=== PATIENT | female | born 1960 | race Caucasian/White ===

== ENCOUNTER 2022-08-09 09:57 | Outpatient (CLI) | payer BC, SELFPAY | END 2022-08-09 09:58 | disposition home or self-care (01) | PROVIDERS: PCP Family Medicine; Visit Provider Family Medicine | DX: E53.8 Deficiency of other specified B group vitamins (principal); E66.01 Morbid (severe) obesity due to excess calories; Z13.1 Encounter for screening for diabetes mellitus; Z13.6 Encounter for screening for cardiovascular disorders | CPT/HCPCS: 80053; 80061; 82306; 82607 ==

== ENCOUNTER 2022-09-08 09:02 | Emergency (ER) | payer BC, SELFPAY ==
[2022-09-08 09:08] VITALS: BP 142/98; PULSE 57; RESP 16; TEMP 36.8; O2SAT 99; BMI 23.2
--- NOTE | 2022-09-08 09:21 | ED_ITS ---
HPI - General Adult General Chief complaint: Weakness Stated complaint: dizzy after MX surgery Time Seen by Provider: 09/08/22 09:07 History of Present Illness HPI narrative: Patient is a 61 year white female who was in [place] had a strangulated hernia repair in her right groin lower abdomen. She had this done emergently. This about 10 days ago. She has had some bleeding now. She has felt a little dizzy. She reports that the surgery went well. She has had pretty good postop rec overy. She is on immune modulators for her rheumatoid arthritis, and Percocet. She denies being on any blood thinners. She has had take has taken Tylenol. No chest pain, breathing problem, neurologic complaint. Related Data Home Medications Medication Instructions Recorded Confirmed adalimumab 40 mg/0.8 mL kit subcut 01/18/22 08/09/22 subcutaneous pen kit (Humira Pen) methotrexate sodium 2.5 mg tablet 2.5 mg PO 01/18/22 08/09/22 oxycodone-acetaminophen 5 mg-325 1 tab PO 01/18/22 08/09/22 mg tablet salsalate 500 mg tablet 1,000 mg PO 01/18/22 08/09/22 Previous Rx's Medication Instructions Recorded oxycodone-acetaminophen 5 mg-325 1 tab PO Q8H PRN pain #10 tabs 09/08/22 mg tablet (Percocet) Allergies Allergy/AdvReac Type Severity Reaction Status Date / Time No Known Drug Allergies Allergy Verified 09/08/22 09:13 Review of Systems Status of ROS: Reports: 6 or more systems reviewed and unremarkable except as noted in History and below PFSH PFSH Social History Smoking Status: Never smoker Little interest or pleasure in doing things: several days Feeling down, depressed, or hopeless: several days Exam Narrative: Exam Narrative: Objective: In general patient apparent distress Vital signs look largely unremarkable Abdomen is benign soft She has a postop hematoma that is draining slightly some darkish blood when pressed, it seems to have a little bit of a hematoma along entire suture line., there is some some mild violaceous color. She has no peritoneal signs under abdomen Good peripheral perfusion noted Neurologic nonfocal Const: Vital Signs, click to edit/add: Vital Signs - 24 hr 09/08/22 09:08 Temperature 98.3 F Pulse Rate [Right Pulse Oximeter] 57 L Respiratory Rate 16 Blood Pressure [Ri ght Upper Arm] 142/98 H Pulse Oximetry 99 Oxygen Delivery Me thod Room Air Course Vital Signs Vital signs: Initial Vital Signs Temperature 98.3 F 09/08/22 09:08 Temperature Source Temporal Artery Scan 09/08/22 09:08 Pulse Rate 57 L 09/08/22 09:08 Pulse Rhythm Regular 09/08/22 09:08 Pulse Strength 3+ Normal 09/08/22 09:08 Respiratory Rate 16 09/08/22 09:08 Blood Pressure 142/98 H 09/08/22 09:08 Blood Pressure Mean 112 H 09/08/22 09:08 Blood Pressure Position Supine 09/08/22 09:08 Pulse Oximetry 99 09/08/22 09:08 Oxygen Delivery Method Room Air 09/08/22 09:08 Vital Signs Temperature 98.3 F 09/08/22 09:08 Pulse Rate 57 L 09/08/22 09:08 Respiratory Rate 16 09/08/22 09:08 Blood Pressure 142/98 H 09/08/22 09:08 Pulse Oximetry 99 09/08/22 09:08 Oxygen Delivery Method Room Air 09/08/22 09:08 Temperature 98.3 F 09/08/22 09:08 Pulse Rate 57 L 09/08/22 09:08 Respiratory Rate 16 09/08/22 09:08 Blood Pressure 142/98 H 09/08/22 09:08 Pulse Oximetry 99 09/08/22 09:08 Oxygen Delivery Method Room Air 09/08/22 09:08 Medical Decision Making MDM Narrative Medical decision making narrative: Patient is 10 days status post lower abdominal hernia repair, with postop hematoma and some leakage of blood out of the wound. At this point would recommend surgical consultation, will check electrolytes and labs, IV fluid. Disposition pending surgical consultation. An ABD pad was placed on the wound. Lab Data Labs: Lab Results 09/08/22 Range/Units 09:30 WBC 5.07 (4.50-11.00) K/uL RBC 3.35 L (4.00-5.20) m/uL Hgb 10.7 L (12.0-16.0) gm/dL Hct 33.3 (33.0-51.0) % MCV 99 (80-100) fL MCH 32 (26-34) pg MCHC 32 (32-36) gm/dL RDW Coeff of Vianca 13.9 (11.5-15.5) % Plt Count 405 (140-440) K/uL Neut % (Auto) 45.5 (42.0-72.0) % Lymph % (Auto) 35.5 (20-44) % Petroleum % (Auto) 7.5 (0.0-11.0) % Eos % (Auto) 10.3 H (0.0-7.0) % Baso % (Auto) 1.0 (0.0-3.0) % Neut # (Auto) 2.31 (1.7-7.0) K/uL Lymph # (Auto) 1.80 (0.90-2.90) K/uL Petroleum # (Auto) 0.40 (0.00-0.90) K/UL Eos # (Auto) 0.50 (0.00-0.50) K/uL Baso # (Auto) 0.05 (0.00-0.30) K/uL Sodium 137 (135-149) mmol/L Potassium 3.9 (3.6-5.1) mmol/L Chloride 105 (96-114) mmol/L Carbon Dioxide 30 (20-32) mmol/L BUN 7 (7-30) mg/dL Creatinine 0.6 (0.5-1.5) mg/dL Estimated Creat Clear 109.17 Estimated GFR 103 ml/min Glucose 92 (60-115) mg/dL Calcium 8.4 (8.4-10.6) mg/dL Discharge Plan Discharge Clinical Impression: Postoperative hematoma Patient Disposition: Home w/ Parent or Adult Condition: Stable Additional Instructions: Postop wound care per surgeon, fluids, Tylenol as needed, recheck with surgeon as described. No bending or lifting heavy objects, avoid aspirin. Please have follow-up as per Dr. Ho's recommendation Activity Level: Light activity Discharge Diet: Regular Prescriptions: New oxycodone-acetaminophen [Percocet] 5-325 mg tablet 1 tab PO Q8H PRN (Reason: pain) Qty: 10 0RF No Action salsalate 500 mg tablet 1,000 mg PO Patient Comments: TAKE 1 TABLET BY MOUTH TWICE DAILY methotrexate sodium 2.5 mg tablet 2.5 mg PO Patient Comments: TAKE 8 TABLETS BY MOUTH ONCE WEEKLY oxycodone-acetaminophen 5-325 mg tablet 1 tab PO Patient Comments: TAKE ONE TABLET BY MOUTH EVERY SIX HOURS NEEDED Humira Pen 40 mg/0.8 mL pen injector kit subcut Follow Up/Referrals: Katiana Riley DO [Primary Care Provider] - Stand Alone Forms: [facility] Info Instructions
--- OUTSIDE RECORDS SUMMARY | 2022-09-08 09:37 | XMS_ITS | Continuity of Care Document ---
Author Name Unknown Organization [facility] giselle Address [address] [facility] [place] [address] Phone Care Team Providers Care Worm Raiser Name Role Phone Bernard Bonner Unavailable Unavailable Allergies, Adverse Reactions, Alerts Substance Reaction Status Criticality No Known Allergies Active No Inform ation Medications Medication Instructions Dosage Effective Dates (start - stop) Status Comments aspirin 325 mg tablet take 1 tablet by oral route every day as needed 325 MG - Active Trexall 5 mg tablet take 8 tablet by oral route every week 40 MG - Active Humira 20 mg/0.4 mL subcutaneous syringe kit use subcutaneously as directed - Active omeprazole 20 mg capsule,delayed release take 1 capsule by oral route every day before a meal 20 MG - Active salsalate 500 mg tablet take 1 tablet by oral route 2 times every day 500 MG - Active Percocet 5 mg-325 mg tablet take 1 tablet by ORAL route every 4 - 6 hours as needed; max 3.5/day - No Longer Active May fill today Percocet 5 mg-325 mg tablet take 1 tablet by ORAL route every 4 - 6 hours as needed; max 3.5/day - No Longer Active May fill today Procedures Procedure Date Foll-up eval q3mo opiod tx OFFICE VISIT, EST TELEMEDICINE Drug Urine Toxology With Chromatography Drug test def 8-14 classes Foll-up eval q3mo opiod tx PT-FOCUSED HLTH RISK ASSMT OFFICE/OUTPATIENT VISIT, EST Foll-up eval q3mo opiod tx OFFICE VISIT, EST TELEMEDICINE Foll-up eval q3mo opiod tx OFFICE VISIT, EST TELEMEDICINE Foll-up eval q3mo opiod tx OFFICE VISIT, EST TELEMEDICINE Foll-up eval q3mo opiod tx OFFICE VISIT, EST TELEMEDICINE Foll-up eval q3mo opiod tx OFFICE VISIT, EST TELEMEDICINE Foll-up eval q3mo opiod tx OFFICE VISIT, EST TELEMEDICINE ROUTINE BLOOD DRAW Drug Urine Toxology With Chromatography Drug test def 8-14 classes Foll-up eval q3mo opiod tx OFFICE VISIT, EST TELEMEDICINE Foll-up eval q3mo opiod tx OFFICE VISIT, EST TELEMEDICINE Foll-up eval q3mo opiod tx OFFICE VISIT, EST TELEMEDICINE OFFICE/OUTPATIENT VISIT, EST Foll-up eval q3mo opiod tx OFFICE VISIT, EST TELEMEDICINE OFFICE VISIT, EST TELEMEDICINE Foll-up eval q3mo opiod tx Foll-up eval q3mo opiod tx OFFICE VISIT, EST TELEMEDICINE OFFICE VISIT, EST TELEMEDICINE Foll-up eval q3mo opiod tx OFFICE VISIT, EST TELEMEDICINE Foll-up eval q3mo opiod tx OFFICE VISIT, EST TELEMEDICINE Foll-up eval q3mo opiod tx Foll-up eval q3mo opiod tx OFFICE VISIT, EST TELEMEDICINE 21 OFFICE VISIT, EST TELEMEDICINE Herrera-28-20 21 Foll-up eval q3mo opiod tx OFFICE VISIT, EST TELEMEDICINE 20 Foll-up eval q3mo opiod tx OFFICE VISIT, EST TELEMEDICINE 20 Foll-up eval q3mo opiod tx OFFICE VISIT, EST TELEMEDICINE 20 Foll-up eval q3mo opiod tx Foll-up eval q3mo opiod tx OFFICE VISIT, EST TELEMEDICINE 20 OFFICE VISIT, EST TELEMEDICINE 20 Foll-up eval q3mo opiod tx OFFICE VISIT, EST TELEMEDICINE 20 Foll-up eval q3mo opiod tx Foll-up eval q3mo opiod tx OFFICE VISIT, EST TELEMEDICINE 20 Foll-up eval q3mo opiod tx OFFICE VISIT, EST TELEMEDICINE 20 Foll-up eval q3mo opiod tx OFFICE VISIT, EST TELEMEDICINE 20 Foll-up eval q3mo opiod tx OFFICE VISIT, EST TELEMEDICINE 20 Drug Urine Toxology With Chromatography Foll-up eval q3mo opiod tx OFFICE/OUTPATIENT VISIT, EST Foll-up eval q3mo opiod tx OFFICE/OUTPATIENT VISIT, EST Foll-up eval q3mo opiod tx OFFICE/OUTPATIENT VISIT, EST OFFICE/OUTPATIENT VISIT, EST Foll-up eval q3mo opiod tx Foll-up eval q3mo opiod tx OFFICE/OUTPATIENT VISIT, EST OFFICE/OUTPATIENT VISIT, EST OFFICE/OUTPATIENT VISIT, EST OFFICE/OUTPATIENT VISIT, EST OFFICE/OUTPATIENT VISIT, EST OFFICE/OUTPATIENT VISIT, EST OFFICE/OUTPATIENT VISIT, EST OFFICE/OUTPATIENT VISIT, EST OFFICE/OUTPATIENT VISIT, EST OFFICE/OUTPATIENT VISIT, [facility] Drug test def 22+ classes Drug Urine Toxology With Chromatography OFFICE CONSULTATION Advance Directives Directive Yes / No Effective Date File Name No Information Encounters Encounter Description Practice Location Reason(s) For Visit Diagnoses Date Provider Providers Copied on Encounter OFFICE VISIT, [facility] TELEMEDICINE [facility], [address] [place] [address], [id number] , [place] tel: [phone] [facility] Rheumatoid Arthritis (chief complaint) Rheumatoid arthritis, unspecifiedPain in left handLong term (current) use of opiate analgesic 2 Joselyn Wagner. [address] [place] [address] [address], [place], [place], [id number] , [place]. tel:[phone] Referring Provider: Yan Brooks, [address] [place] [address], [address]. [phone] [facility], [address] [place] [address], [id number] , [place] tel: [phone] [facility] No Information 2 Joselyn Wagner. [address] [place] [address] [address], [place], [place], [id number] , [place]. tel:[phone] OFFICE/OUTPAT IENT VISIT, [facility], [address] [place] [address], [id number] , [place] tel: [phone] [facility] Rheumatoid Arthritis (chief complaint) Rheumatoid arthritis, unspecifiedPain in left handLong term (current) use of opiate analgesicEncount er for screening for other disorder 2 Joselyn Wagner. [address] [place] [address] [address], [place], [place], [id number] , [place]. tel:[phone] Referring Provider: Jonathan Lozada, [address], [address]. tel:[phone] OFFICE VISIT, [facility] TELEMEDICINE [facility], [address] [place] [address], [id number] , [place] tel: [phone] [facility] [place] Rheumatoid Arthritis (chief complaint) Rheumatoid arthritis, unspecifiedPain in left handLong term (current) use of opiate analgesic 2 Alves Bernard. [address] [place] [address] [address], [place], [id number] , [place]. tel: [phone] OFFICE VISIT, EST TELEMEDICINE [facility], [address] [place] [address], [id number] , [place] tel: [phone] [facility] Rheumatoid Arthritis (chief complaint) Rheumatoid arthritis, unspecifiedPain in left handLong term (current) use of opiate analgesic 2 Alves Bernard. [address] [place] [address] [address], [place], [place], [id number] , [place]. tel: [phone] Referring Provider: Yan Brooks, [address] [place] [address], [address]. tel:[phone] OFFICE VISIT, [facility] TELEMEDICINE [facility], [address] [place] [address], [id number] , [place] tel: [phone] [facility] Rheumatoid Arthritis (chief complaint) Rheumatoid arthritis, unspecifiedPain in right handPain in left handLong term (current) use of opiate analgesic 2 Alves Bernard. [address] [place] [address] [address], [place], [place], [id number] , [place]. tel: [phone] Referring Provider: Yan Brooks, [address] [place] [address], [address]. tel:[phone] OFFICE VISIT, EST TELEMEDICINE [facility], [address] [place] [id number] , [place] tel: [phone] [facility] Rheumatoid Arthritis (chief complaint) Rheumatoid arthritis, unspecifiedPain in left handPain in right handLong term (current) use of opiate analgesic 2 Alves Bernard. [address] [place] [address] [address], [place], [place], [id number] , [place]. tel:[phone] Referring Provider: Yan Brooks, [address] [place], [address]. [phone] OFFICE VISIT, EST TELEMEDICINE [facility], [address] [place] [address], [id number] , [place] tel:[phone] [facility] [place] Rheumatoid Arthritis (chief complaint) Rheumatoid arthritis, unspecifiedPain in left handPain in right handLong term (current) use of opiate analgesic 2 Joselyn Wagner. [facility], [facility] [address], [place], [place], [id number] , [place]. tel: [phone] OFFICE VISIT, EST TELEMEDICINE [facility], [address] [place] [address], [id number] , [place] tel:[phone] [facility] Rheumatoid Arthritis (chief complaint) Rheumatoid arthritis, unspecifiedPain in left handPain in right handLong term (current) use of opiate analgesic 1 Joselyn Wagner. [address] [place] [address] [address], [place], [place], [id number] , [place]. tel:[phone] [facility], [address] [place] [address], [id number] , [place] tel:[phone] [facility] [place] No Information 1 Karon Cohn. [address], [place], [place], [id number] , [place]. tel: [phone] Referring Provider: Jonathan Lozada, [facility] [address], [address]. [phone] OFFICE VISIT, EST TELEMEDICINE [facility], [address] [place] [address], [id number] , [place] tel:[phone] [facility] [place] Rheumatoid Arthritis (chief complaint) Rheumatoid arthritis, unspecifiedPain in left handPain in right handLong term (current) use of opiate analgesic 1 Joselyn Wagner. [address] [place] [address] [address], [place], [id number] , [place]. tel: [phone] OFFICE VISIT, EST TELEMEDICINE [facility], [address] [place] [address], [id number] , [place] tel: [phone] [facility] Rheumatoid Arthritis (chief complaint) Rheumatoid arthritis, unspecifiedPain in left handPain in right handLong term (current) use of opiate analgesic Feb- 1 Alves Bernard. [facility], [facility] [address], [place], [id number] , [place]. tel: [phone] Referring Provider: Yan Brooks, [address] [place] [address], [address]. [phone] OFFICE VISIT, EST [facility], [address] [place] [address], [id number] , [place] tel: [phone] [facility] Rheumatoid Arthritis (chief complaint) Pain in left handPain in right handRheumatoid arthritis, unspecifiedLong term (current) use of opiate analgesic Jan- 1 Alves Bernard. [facility], [facility] [address], [place], [id number] , [place]. tel: [phone] OFFICE VISIT, EST TELEMEDICINE [facility], [address] [place] [address], [id number] , [place] tel: [phone] [facility] Rheumatoid Arthritis (chief complaint) Pain in left handPain in right handLong term (current) use of opiate analgesicRheumat oid arthritis, unspecified Aug- 1 Alves Bernard. [address] [place] [address] [address], [place], [id number] , [place]. tel:[phone] Referring Provider: Yan Brooks, [address] [place] [address], [address]. [phone] OFFICE VISIT, EST TELEMEDICINE [facility], [address] [place] [address], [id number] , [place] tel:[phone] [facility] Rheumatoid Arthritis (chief complaint) Pain in left handPain in right handLong term (current) use of opiate analgesicRheumat oid arthritis, unspecified 1 Joselyn Wagner. [address] [place] [address] [address], [place], [place], [id number] , [place]. tel:[phone] Referring Provider: Yan Brooks, [address] [place] [address], [address]. tel:[phone] OFFICE VISIT, EST TELEMEDICINE [facility], [address] [place] [address], [id number] , [place] tel:[phone] [facility] Rheumatoid Arthritis (chief complaint) Pain in left handPain in right handLong term (current) use of opiate analgesicRheumat oid arthritis, unspecified 1 Joselyn Wagner. [address] [place] [address] [address], [place], [place], [id number] , [place]. tel:[phone] Referring Provider: Yan Brooks, [address] [place] [address], [address]. tel:[phone] OFFICE VISIT, [facility], [address] [place] [address], [id number] , [place] tel:[phone] [facility] Rheumatoid Arthritis (chief complaint) Pain in left handPain in right handLong term (current) use of opiate analgesicRheumat oid arthritis, unspecified 1 Joselyn Wagner. [address] [place] [address] [address], [place], [place], [id number] , [place]. tel:[phone] Referring Provider: Yan Brooks, [address] [place] [address], [address]. tel:[phone] OFFICE VISIT, EST [facility], [address] [place] [address], [id number] , [place] tel:[phone] [facility] Rheumatoid Arthritis (chief complaint) Rheumatoid arthritis, unspecifiedLong term (current) use of opiate analgesicPain in left handPain in right hand 1 Joselyn Wagner. [address] [place] [address] [address], [place], [id number] , [place]. tel:[phone] Referring Provider: Yan Brooks, [address] [place] [address], [address]. [phone] OFFICE VISIT, [facility], [address] [place] [address], [id number] , [place] tel:[phone] [facility] Rheumatoid Arthritis (chief complaint) Rheumatoid arthritis, unspecifiedLong term (current) use of opiate analgesicPain in left handPain in right hand 1 Alves Bernard. [address] [place] [address] [address], [place], [id number] , [place]. tel:[phone] Referring Provider: Yan Brooks, [address] [place] [address], [address]. [phone] OFFICE VISIT, [facility], [address] [place] [address], [id number] , [place] tel:[phone] [facility] Rheumatoid Arthritis (chief complaint) Rheumatoid arthritis, unspecifiedLong term (current) use of opiate analgesicPain in left handPain in right hand 1 Alves Bernard. [address] [place] [address] [address], [place], [place], [id number] , [place]. tel:[phone] Referring Provider: Yan Brooks, [address] [place] [address], [address]. [phone] OFFICE VISIT, [facility], [address] [place] [address], [id number] , [place] [phone] [facility] Rheumatoid Arthritis (chief complaint) Rheumatoid arthritis, unspecifiedLong term (current) use of opiate analgesicPain in left handPain in right hand 1 Joselyn Fitzpatrickel. [address] [place] [address] [address], [place], [place], [id number] , [place]. tel:[phone] Referring Provider: Yan Brooks, [address] [place] [address], [address]. [phone] OFFICE VISIT, [facility] TELEMEDICINE [facility], [address] [place] [address], [id number] , [place] [phone] [facility] Rheumatoid Arthritis (chief complaint) Rheumatoid arthritis, unspecifiedLong term (current) use of opiate analgesicPain in left handPain in right hand 0 Alves Bernard. [address] [place] [address] [address], [facility] [place], [id number] , [place]. tel:[phone] Referring Provider: Yan Brooks, [address] [place] [address], [address]. [phone] OFFICE VISIT, EST [facility], [address] [place] [address], [id number] , [place] tel:[phone] [facility] Rheumatoid Arthritis (chief complaint) Rheumatoid arthritis, unspecifiedLong term (current) use of opiate analgesicPain in left handPain in right hand Nov-3 0-202 0 Alves Bernard. [address] [place] [address] [address], [facility] [place], [id number] , [place]. tel:[phone] Referring Provider: Yan Brooks, [address] [place] [address], [address]. [phone] OFFICE VISIT, [facility], [address] [place] [address], [id number] , [place] tel:[phone] [facility] Rheumatoid Arthritis (chief complaint) Rheumatoid arthritis, unspecifiedLong term (current) use of opiate analgesicPain in left handPain in right hand Feb- 0 Alves Bernard. [address] [place] [address] [address], [place], [place], [id number] , [place]. [phone] Referring Provider: Yan Brooks, [address] [place] [address], [address]. tel:[phone] OFFICE VISIT, EST [facility], [address] [place] [address], [id number] , [place] tel:[phone] [facility] [place] Rheumatoid Arthritis (chief complaint) Rheumatoid arthritis, unspecifiedHeada cheLong term (current) use of opiate analgesicPain in left handPain in right hand Sep-2 0 Alves Bernard. [facility] [facility] [address], [place] , [place], [id number] , [place]. tel:[phone] Referring Provider: Yan Brooks, [address] [place] [address], [address]. tel:[phone] OFFICE VISIT, EST TELEMEDICINE [facility], [address] [place] [address], [id number] , [place] tel:[phone] [facility] Rheumatoid Arthritis (chief complaint) Rheumatoid arthritis, unspecifiedHeada cheLong term (current) use of opiate analgesicPain in left handPain in right hand Dec-3 0 Alves Bernard. [address] [place] [address] [address], [place], [place], [id number] , [place]. tel:[phone] Referring Provider: Yan Brooks, [address] [place] [address], [address]. [phone] OFFICE VISIT, EST TELEMEDICINE [facility], [address] [place] [address], [id number] , [place] tel:[phone] [facility] [place] Rheumatoid Arthritis (chief complaint) Rheumatoid arthritis, unspecifiedHeada cheLong term (current) use of opiate analgesicPain in left ankle and joints of left footPain in right ankle and joints of right footPain in left handPain in right hand Dec-0 0 Alves Bernard. [address] [place] [address] [address], [place], [place], [id number] , [place]. tel:[phone] Referring Provider: Yan Brooks, [address] [place] [address], [address]. [phone] OFFICE VISIT, EST TELEMEDICINE [facility], [address] [place] [address], [id number] , [place] tel:[phone] [facility] Rheumatoid Arthritis (chief complaint) Rheumatoid arthritis, unspecifiedHeada cheLong term (current) use of opiate analgesicPain in left ankle and joints of left footPain in right ankle and joints of right footPain in left handPain in right hand Carlton-0 2-202 0 Alves Bernard. [address] [place] [address] [address], [place] , [place], [id number] , [place]. tel:[phone] Referring Provider: Yan Brooks, [address] [place] [address], [address]. [phone] OFFICE VISIT, EST TELEMEDICINE [facility], [address] [place] [address], [id number] , [place] tel:[phone] [facility] Rheumatoid Arthritis (chief complaint) Rheumatoid arthritis, unspecifiedHeada cheLong term (current) use of opiate analgesic Giacomo-0 3- 0 Alves Bernard. [address] [place] [address] [address], [place], [place], [id number] , [place]. tel:[phone] Referring Provider: Yan Brooks, [address] [place] [address], [address]. [phone] OFFICE VISIT, EST TELEMEDICINE [facility], [address] [place] [address], [id number] , [place] tel:[phone] [facility] Rheumatoid Arthritis (chief complaint) Rheumatoid arthritis, unspecifiedHeada cheLong term (current) use of opiate analgesic May-0 4- 0 Alveskimberly Wagner. [address] [place] [address] [address], [place], [place], [id number] , [place]. tel: [phone] OFFICE VISIT, EST TELEMEDICINE [facility], [address] [place] [address], [id number] , [place] tel:[phone] [facility] Rheumatoid Arthritis (chief complaint) Rheumatoid arthritis, unspecifiedHeada cheLong term (current) use of opiate analgesic Apr-0 3-202 0 Alves Bernard. [address] [place] [address] [address], [facility], [place], [id number] , [place]. tel:[phone] Referring Provider: Yan Brooks, [address] [place] [address], [address]. tel:[phone] OFFICE/OUTPAT IENT VISIT, [facility], [address] [place], [place], [id number] , [place] tel: [phone] [facility] Rheumatoid Arthritis (chief complaint) half-way (current) use of opiate analgesicRheumat oid arthritis, unspecifiedHeada azul Mar-0 6-202 0 Alves Bernard. [facility], [facility] [address], [place], [place], [id number] , [place]. tel: [phone] Referring Provider: Jonathan Lozada, [address], [facility]. tel: [phone] OFFICE/OUTPAT IENT VISIT, [facility], [address] [place], [place], [id number] , [place] tel: [phone] [facility] Rheumatoid Arthritis (chief complaint) half-way (current) use of opiate analgesicRheumat oid arthritis, unspecifiedHeada azul Feb-0 3-202 0 Alves Bernard. [address] [place] [address] [address], [place], [place], [id number] , [place]. tel: [phone] Referring Provider: Jonathan Lozada, [address], [address]. tel: [phone] OFFICE/OUTPAT IENT VISIT, [facility], [address] [place], [place], [id number] , [place] tel: [phone] [facility] Rheumatoid Arthritis (chief complaint) terminal clerk (current) use of opiate analgesicRheumat oid arthritis, unspecifiedHeada azul Herrera-0 6-202 0 Alves Bernard. [address] [place] [address] [address], [place], [place], [id number] , [place]. tel: [phone] Referring Provider: Jonathan Lozada, [address], [address]. tel: [phone] OFFICE/OUTPAT IENT VISIT, [facility], [address] [place] [address], [id number] , [place] tel: [phone] [facility] Rheumatoid Arthritis (chief complaint) terminal clerk (current) use of opiate analgesicRheumat oid arthritis, unspecifiedHeada azul Dec-0 6-201 9 Alves Bernard. [address] [place] [address] [address], [place], [place], [id number] , [place]. tel: [phone] Referring Provider: Jonathan Lozada, [address], [facility]. tel: [phone] OFFICE/OUTPAT IENT VISIT, [facility], [address] [place] [address], [id number] , [place] tel: [phone] [facility] Rheumatoid Arthritis (chief complaint) half-way (current) use of opiate analgesicRheumat oid arthritis, unspecifiedHeada azul Nov-0 4-201 9 Alves Bernard. [address] [place] [address] [address], [place], [place], [id number] , [place]. tel: [phone] Referring Provider: Jonathan Lozada[address], [facility]. tel: [phone] OFFICE/OUTPAT IENT VISIT, [facility], [address] [place] [address], [id number] , [place] tel: [phone] [facility] Rheumatoid Arthritis (chief complaint) Rheumatoid arthritis, unspecifiedHeada cheLong term (current) use of opiate analgesic Oct-0 7-201 9 Alves Bernard. [address] [place] [address] [address], [place], [place], [id number] , [place]. tel: [phone] Referring Provider: Jonathan Lozada, [address], [address]. tel: [phone] OFFICE/OUTPAT IENT VISIT, [facility], [address] [place] [address], [id number] , [place] tel: [phone] [facility] [place] Rheumatoid Arthritis (chief complaint) Rheumatoid arthritis, unspecifiedHeada cheLong term (current) use of opiate analgesic Sep-0 6 9 Alves Bernard. [address] [place] [address] [address], [place], [place], [id number] , [place]. tel: [phone] Referring Provider: Jonathan Lozada, [address], [address]. tel:[phone] OFFICE/OUTPAT IENT VISIT, [facility], [address] [place] [address], [id number] , [place] tel: [phone] [facility] Rheumatoid Arthritis (chief complaint) Rheumatoid arthritis, unspecifiedHeada cheLong term (current) use of opiate analgesic Aug-0 9 Alves Bernard. [address] [place] [address] [address] [facility], [place], [place], [id number] , [place]. tel: [phone] Referring Provider: Jonathan Lozada, [address], [address]. tel:[phone] OFFICE/OUTPAT IENT VISIT, EST [facility], [address] [place] [address], [id number] , [place] tel: [phone] [facility] Rheumatoid Arthritis (chief complaint) Rheumatoid arthritis, unspecifiedHeada cheLong term (current) use of opiate analgesic Carlton-0 9 Alves Bernard. [address] [place] [address] [address], [place], [place], [id number] , [place]. tel: [phone] Referring Provider: Jonathan Lozada, [address], [address]. tel:[phone] OFFICE/OUTPAT IENT VISIT, [facility], [address] [place] [address], [id number] , [place] tel: [phone] [facility] Rheumatoid Arthritis (chief complaint) Rheumatoid arthritis, unspecifiedHeada cheLong term (current) use of opiate analgesic Giacomo-0 9 Alves Bernard. [address] [place] [address] [address], [place], [place], [id number] , [place]. tel: [phone] Referring Provider: Jonathan Lozada, [address], [address]. tel:[phone] OFFICE/OUTPAT IENT VISIT, [facility], [address] [place], [place], [id number] , [place] tel: [phone] [facility] [place] Rheumatoid Arthritis (chief complaint) Rheumatoid arthritis, unspecifiedHeada cheLong term (current) use of opiate analgesic 9 Alves Bernard. [address] [place] [address] [address], [place], [place], [id number] , [place]. tel: [phone] Referring Provider: Jonathan Lozada, [address], [address]. tel:[phone] OFFICE/OUTPAT IENT VISIT, [facility], [address] [place] [address], [id number] , [place] tel: [phone] [facility] Rheumatoid Arthritis (chief complaint) Rheumatoid arthritis, unspecifiedHeada cheLong term (current) use of opiate analgesic Aug-2 9 Alves Bernard. [address] [place] [address] [address], [place], [place], [id number] , [place]. tel: [phone] Referring Provider: Jonathan Lozada, [address], [address]. tel:[phone] OFFICE/OUTPAT IENT VISIT, EST [facility], [address] [place] [address], [id number] , [place] tel: [phone] [facility] Rheumatoid Arthritis (chief complaint) Rheumatoid arthritis, unspecifiedHeada cheLong term (current) use of opiate analgesic Jul-2 9 Alves Bernard. [address], [place], [place], [id number] , [place]. tel:[phone] Referring Provider: Jonathan Lozada, [address], [address]. tel:[phone] OFFICE/OUTPAT IENT VISIT, EST [facility], [address] [place], [place], [id number] , [place] tel:[phone] [facility] [place] Rheumatoid Arthritis (chief complaint) Rheumatoid arthritis, unspecifiedHeada cheLong term (current) use of opiate analgesic Jul-0 9 Joselyn Wagner. [address], [place], [place], [id number] , [place]. tel:[phone] Referring Provider: Jonathan Lozada, [address], [address]. tel:[phone] OFFICE CONSULTATION [facility], [address] [place], [place], [id number] , [place] tel:[phone] [facility] Rheumatoid Arthritis (chief complaint) Rheumatoid arthritis, unspecifiedHeada cheLong term (current) use of opiate analgesicEncount er for therapeutic drug level monitoringOther cervical disc degeneration, unsp cervical regionSpinal stenosis, cervical region 9 [facility]. [facility], [address], [place], [address], [place]. tel:[phone] Referring Provider: Jonathan Lozada, [address], [address]. [phone] Family History Family Member Type Diagnosis Age At Onset No Information Payers Payer name Insurance type Covered constitution party ID [place] betty(s) [employer] Medicaid [id number] Social History Type Description Quantity Date Captured Comments Alcohol Use Details Unknown Caffeine Use Details Unknown Tobacco Use Status No Information Smoking Status No Information Sex Female Chief Complaint And Reason For Visit From encounter dated '12/09/2021 09:43'. Rheumatoid Arthritis (chief complaint). Description: Severity level is 2. The patient describes thediscomfort as achy. It occurs intermittently. The problem is stable. Symptom is aggravated by movement. Relieving factors include massage. Pertinent negatives include fatigue and headache. Reason For Referral Reason For Referral No Information Plan Of Treatment Date Type Action Status Goal CT-Colonography. Due on due Goal Weight. Due on d ue Goal Unhealthy drug u se screening. Due on due Goal Medication Recon ciliation. Due on due Goal HPV. Due on due Goal Lipid panel. Due on 022 due Goal UDT. Due on due Goal Zoster vaccine (1st). Due on due Goal PHQ-9. Due on du e Goal AST (SGOT). Due on due Goal Review Allergy List. Due on due Goal Order Annual PT. Due on due Goal ALT (SGPT). Due on due Goal OARS. Due on due Goal Height. Due on d ue Goal Creatinine. Due on due Goal BANANA ROOM CUTTER Paperwork. Due on due Goal FIT. Due on due Goal Hepatitis C screening. Due o n due Goal FIT-DNA. Due on due Goal WASTEWATER ENGINEER Scanned. Due on due Goal Tobacco Use. Due on due Goal Update Social History. Due o n due Goal BANANA ROOM CUTTER Paperwork. Due on due Goal UDT. Due on due Goal OARS. Due on due Goal ALT (SGPT). Due on due Goal Hepatitis C screening. Due o n due Goal Lipid panel. Due on due Goal AST (SGOT). Due on due Goal Zoster vaccine (1st). Due on due Goal WASTEWATER ENGINEER Scanned. Due on due Goal HPV. Due on due Goal CT-Colonography. Due on due Goal Medication Recon ciliation. Due on due Goal Order Annual PT. Due on due Goal Review Allergy List. Due on due Goal FIT. Due on due Goal Tobacco Use. Due on due Goal Unhealthy drug u se screening. Due on due Goal Creatinine. Due on due Goal FIT-DNA. Due on due Goal Weight. Due on d ue Goal Update Social History. Due o n due Goal PHQ-9. Due on du e Goal Height. Due on d ue Goal Update Social History. Due o n due Goal Tobacco Use. Due on due Goal Height. Due on d ue Goal WASTEWATER ENGINEER Scanned. Due on due Goal CT-Colonography. Due on due Goal Order Annual PT. Due on due Goal Weight. Due on d ue Goal Review Allergy List. Due on due Goal PHQ-9. Due on du e Goal UDT. Due on due Goal HPV. Due on due Goal Hepatitis C screening. Due o n due Goal OARS. Due on due Goal BANANA ROOM CUTTER Paperwork. Due on due Goal FIT-DNA. Due on due Goal ALT (SGPT). Due on due Goal Zoster vaccine (). Due on due Goal Lipid panel. Due on due Goal FIT. Due on due Goal AST (SGOT). Due on due Goal Unhealthy drug u se screening. Due on due Goal Medication Recon ciliation. Due on due Goal Creatinine. Due on due Goal Zoster vaccine (). Due on due Goal Medication Recon ciliation. Due on due Goal Order Annual PT. Due on due Goal UDT. Due on due Goal PHQ-9. Due on du e Goal Height. Due on d ue Goal Weight. Due on d ue Goal Creatinine. Due on due Goal BANANA ROOM CUTTER Paperwork. Due on due Goal Tobacco Use. Due on due Goal Unhealthy drug u se screening. Due on due Goal WASTEWATER ENGINEER Scanned. Due on due Goal AST (SGOT). Due on due Goal Hepatitis C screening. Due o n due Goal CT-Colonography. Due on due Goal HPV. Due on due Goal FIT-DNA. Due on due Goal OARS. Due on due Goal ALT (SGPT). Due on due Goal FIT. Due on due Goal Update Social History. Due o n due Goal Lipid panel. Due on due Goal Review Allergy List. Due on due Goal HPV. Due on due Goal AST (SGOT). Due on due Goal Height. Due on d ue Goal Hepatitis C screening. Due o n due Goal ALT (SGPT). Due on due Goal Tobacco Use. Due on due Goal FIT-DNA. Due on due Goal Weight. Due on d ue Goal PHQ-9. Due on du e Goal Review Allergy List. Due on due Goal FIT. Due on due Goal Lipid panel. Due on due Goal Update Social History. Due o n due Goal Zoster vaccine (). Due on due Goal Medication Recon ciliation. Due on due Goal Unhealthy drug u se screening. Due on due Goal CT-Colonography. Due on due Goal WASTEWATER ENGINEER Scanned. Due on due Goal Creatinine. Due on due Goal BANANA ROOM CUTTER Paperwork. Due on due Goal UDT. Due on due Goal OARS. Due on due Goal Order Annual PT. Due on due Goal Height. Due on d ue Goal Creatinine. Due on due Goal PHQ-9. Due on du e Goal Weight. Due on d ue Goal Review Allergy List. Due on due Goal Order Annual PT. Due on due Goal WASTEWATER ENGINEER Scanned. Due on due Goal ALT (SGPT). Due on due Goal Tobacco Use. Due on due Goal AST (SGOT). Due on due Goal BANANA ROOM CUTTER Paperwork. Due on due Goal Medication Recon ciliation. Due on due Goal UDT. Due on due Goal OARS. Due on due Goal Update Social History. Due o n due Goal ALT (SGPT). Due on due Goal UDT. Due on due Goal OARS. Due on due Goal BANANA ROOM CUTTER Paperwork. Due on due Goal Tobacco Use. Due on due Goal PHQ-9. Due on du e Goal AST (SGOT). Due on due Goal Creatinine. Due on due Goal Order Annual PT. Due on due Goal WASTEWATER ENGINEER Scanned. Due on due Goal Weight. Due on d ue Goal Review Allergy List. Due on due Goal Update Social History. Due o n due Goal Medication Recon ciliation. Due on due Goal Height. Due on d ue Goal Medication Recon ciliation. Due on due Goal PHQ-9. Due on du e Goal Height. Due on d ue Goal Weight. Due on d ue Goal Review Allergy List. Due on due Goal Tobacco Use. Due on due Goal ALT (SGPT). Due on due Goal AST (SGOT). Due on due Goal Order Annual PT. Due on due Goal UDT. Due on due Goal WASTEWATER ENGINEER Scanned. Due on due Goal Creatinine. Due on due Goal BANANA ROOM CUTTER Paperwork. Due on due Goal OARS. Due on due Goal Update Social History. Due o n due Goal Height. Due on d ue Goal PHQ-9. Due on du e Goal Medication Recon ciliation. Due on due Goal Tobacco Use. Due on due Goal OARS. Due on due Goal Review Allergy List. Due on due Goal BANANA ROOM CUTTER Paperwork. Due on due Goal UDT. Due on due Goal WASTEWATER ENGINEER Scanned. Due on due Goal Weight. Due on d ue Goal ALT (SGPT). Due on due Goal Order Annual PT. Due on due Goal AST (SGOT). Due on due Goal Creatinine. Due on due Goal Update Social History. Due o n due Goal Medication Recon ciliation. Due on due Goal ALT (SGPT). Due on due Goal Update Social History. Due o n due Goal WASTEWATER ENGINEER Scanned. Due on due Goal Height. Due on d ue Goal Review Allergy List. Due on due Goal OARS. Due on due Goal AST (SGOT). Due on due Goal Order Annual PT. Due on due Goal Creatinine. Due on due Goal UDT. Due on due Goal BANANA ROOM CUTTER Paperwork. Due on due Goal Weight. Due on d ue Goal PHQ-9. Due on du e Goal Tobacco Use. Due on due Goal Review Allergy List. Due on due Goal Height. Due on d ue Goal Order Annual PT. Due on due Goal WASTEWATER ENGINEER Scanned. Due on due Goal OARS. Due on due Goal Medication Recon ciliation. Due on due Goal ALT (SGPT). Due on due Goal UDT. Due on due Goal AST (SGOT). Due on due Goal Creatinine. Due on due Goal BANANA ROOM CUTTER Paperwork. Due on due Goal Update Social History. Due o n due Goal Tobacco Use. Due on due Goal Weight. Due on d ue Goal PHQ-9. Due on du e Goal Tobacco Use. Due on due Goal Review Allergy List. Due on due Goal WASTEWATER ENGINEER Scanned. Due on due Goal BANANA ROOM CUTTER Paperwork. Due on due Goal ALT (SGPT). Due on due Goal Order Annual PT. Due on due Goal UDT. Due on due Goal Weight. Due on d ue Goal OARS. Due on due Goal PHQ-9. Due on du e Goal AST (SGOT). Due on due Goal Medication Recon ciliation. Due on due Goal Update Social History. Due o n due Goal Creatinine. Due on due Goal Height. Due on d ue Goal Review Allergy List. Due on due Goal BANANA ROOM CUTTER Paperwork. Due on due Goal UDT. Due on due Goal ALT (SGPT). Due on due Goal Medication Recon ciliation. Due on due Goal Weight. Due on d ue Goal AST (SGOT). Due on due Goal PHQ-9. Due on du e Goal Order Annual PT. Due on due Goal Creatinine. Due on due Goal OARS. Due on due Goal Update Social History. Due o n due Goal Height. Due on d ue Goal Tobacco Use. Due on due Goal WASTEWATER ENGINEER Scanned. Due on due Goal PHQ-9. Due on du e Goal Update Social History. Due o n due Goal Order Annual PT. Due on due Goal Tobacco Use. Due on due Goal Weight. Due on d ue Goal WASTEWATER ENGINEER Scanned. Due on due Goal AST (SGOT). Due on due Goal ALT (SGPT). Due on due Goal Creatinine. Due on due Goal Height. Due on d ue Goal OARS. Due on due Goal UDT. Due on due Goal BANANA ROOM CUTTER Paperwork. Due on due Goal Review Allergy List. Due on due Goal Medication Recon ciliation. Due on due Goal Update Social History. Due o n due Goal Review Allergy List. Due on due Goal Tobacco Use. Due on due Goal UDT. Due on due Goal BANANA ROOM CUTTER Paperwork. Due on due Goal Height. Due on d ue Goal Medication Recon ciliation. Due on due Goal OARS. Due on due Goal ALT (SGPT). Due on due Goal Weight. Due on d ue Goal Order Annual PT. Due on due Goal AST (SGOT). Due on due Goal Creatinine. Due on due Goal WASTEWATER ENGINEER Scanned. Due on due Goal PHQ-9. Due on du e Goal Update Social History. Due o n due Goal Weight. Due on d ue Goal Order Annual PT. Due on due Goal PHQ-9. Due on du e Goal Tobacco Use. Due on due Goal OARS. Due on due Goal BANANA ROOM CUTTER Paperwork. Due on due Goal ALT (SGPT). Due on due Goal Height. Due on d ue Goal AST (SGOT). Due on due Goal Review Allergy List. Due on due Goal WASTEWATER ENGINEER Scanned. Due on due Goal Medication Recon ciliation. Due on due Goal Creatinine. Due on due Goal UDT. Due on due Goal ALT (SGPT). Due on due Goal Creatinine. Due on due Goal PHQ-9. Due on du e Goal AST (SGOT). Due on due Goal UDT. Due on due Goal WASTEWATER ENGINEER Scanned. Due on due Goal Weight. Due on d ue Goal BANANA ROOM CUTTER Paperwork. Due on due Goal OARS. Due on due Goal Update Social History. Due o n due Goal Tobacco Use. Due on due Goal Height. Due on d ue Goal Medication Recon ciliation. Due on due Goal Review Allergy List. Due on due Goal Order Annual PT. Due on due Referral Ordered: Stephen Palumbo MD -Family Medicine (related to Headache) ordered Referral Ordered: Stephen Palumbo MD -Family Medicine (related to Rheumatoid arthritis, unspecified) ordered Referral Referred To: Stephen Palumbo MD [facility]
[address] [place], [phone] Ordered: Referrals: Family Medicine. Stephen Palumbo MD ordered Referral Ordered: Stephen Palumbo -Allopathic & Osteopathic Physicians : Internal Medicine : Rheumatology (related to Rheumatoid arthritis, unspecified) ordered Referral Referred To: Stephen Palumbo [facility]
[address] [place], [address] [phone] Ordered: Referrals: Allopathic & Osteopathic Physicians : Internal Medicine : Rheumatology. Stephen Palumbo ordered Future Order: Lab Order Drug Jackie t Def 22+ Classes (G0483), Ordered on: Ordered Future Order: Lab Order COMPLIAN CE DRUG ANALYSIS, URINE, WITH MED REPORT ([id number]), Ordered on: Ordered History Of Present Illness Encounter Date Complaint History Of Prese nt Illness Comments: Dora mueller is a 60 y/o female presenting for a virtual follow up and medications refill. She is followed for widespread pain r/t RA. Widespread pain has been relatively stable since last OV. Continues to report intermittent flares that are well managed with current regimen. Most of today's visit was spent discussing most recent UDT results. Patient was (+) for morphine. Denies use of morphine and states she will contact the lab.Reports current medication regimen provides 75+% pain relief and allows for increased functionality, including golfing every Tuesday. Presents on track. Denies side effects from current medication regimen. No other concerns today. Rheumatoid Arthritis Severity le dougie is 2. The patient describes the discomfort as achy. It occurs intermittently. The problem is stable. Symptom is aggravated by movement. Relieving factors include massage. Pertinent negatives include fatigue and headache. Comments: Dora mueller is a 60 y/o female presenting for a virtual follow up and medications refill. She is followed for widespread pain r/t RA. Widespread pain has been relatively stable since last OV. Continues to report intermittent flares that are well managed with current regimen. She reports increased emotional stress d/t her father passing away last week. Patient notes that she has a good support system to grieve her loss. Reports current medication regimen provides 75+% pain relief and allows for increased functionality, including golfing every Tuesday. Presents on track. Denies side effects from current medication regimen.No other concerns today. Rheumatoid Arthritis Severity le dougie is 2. It occurs intermittently. The problem is stable. Symptom is aggravated by prolonged positioning, running and twisting. Relieving factors include rest, Rx medications, heat and lying down. Pertinent negatives include fatigue and headache. Rheumatoid Arthritis Severity le dougie is 2. The patient describes the discomfort as achy. It occurs intermittently. The problem is stable. Symptom is aggravated by prolonged positioning, running and twisting. Relieving factors include Rx medications, heat, changing positions and lying down. Comments: Dora mueller is a 60 y/o female presenting via [facility] for a virtual follow up and medications refill. She is followed for widespread pain r/t RA. Widespread pain has been relatively stable since last OV. Continues to report intermittent flares that are well managed with current regimen. She reports increased emotional stress d/t her father passing away last week. Patient notes that she has a good support system to grieve her loss. Reports current medication regimen provides 75+% pain relief and allows for increased functionality, including golfing every Tuesday. Denies side effects from current medication regimen.No other concerns today. Comments: Dora mueller is a 60 y/o female presenting via [facility] for a virtual follow up and medications refill. She is followed for widespread pain r/t RA. Widespread pain has been relatively stable since last OV. Continues to report intermittent flares that are well managed with current regimen. She reports increased emotional stress d/t her mother going into memory care and her father to a TCU since An[place] notes that her lock jaw has been more bothersome lately. If pain persists or worsens, she plans to follow with a specialist. Reports current medication regimen provides 50+% pain relief and allows for increased functionality, including golfing every Tuesday. Denies side effects from current medication regimen.No other concerns today. Rheumatoid Arthritis Onset was g radual. Severity level is moderate. Location of the pain is jaw, neck, knee and ankle. The patient describes the discomfort as achy, pain with use and dull. The problem is stable. Symptom is aggravated by rest and walking. Relieving factors include rest and Rx medications. The client is experiencing headache. Pertinent negatives include fatigue. Rheumatoid Arthritis Severity le dougie is 2. Location of the pain is jaw and widespread. The patient describes the discomfort as achy. It occurs intermittently. The problem is stable. Symptom is aggravated by standing, prolonged positioning and sitting. Relieving factors include heat, changing positions and supine. Pertinent negatives include fatigue and headache. Rheumatoid Arthritis (comments) [place] presents for a virtual follow up and medications refill. She is followed for widespread pain r/t RA. Widespread pain has been relatively stable since last OV. Continues to report intermittent flares that are well managed with current regimen. She notes that her lock jaw has been more bothersome lately. If pain persists or worsens, she plans to follow with a specialist. Denies additional pain concerns today.Reports current medication regimen provides 75+% pain relief and allows for increased functionality. Denies side effects from current medication regimen.No other concerns today. Rheumatoid Arthritis Severity le dougie is 5. Location of the pain is joints and jaw. The patient describes the discomfort as achy. It occurs persistently. The problem is worsening. Symptom is aggravated by prolonged positioning. Relieving factors include heat, changing positions and supine. Pertinent negatives include fatigue and headache. Rheumatoid Arthritis (comments) [place] presents for a virtual follow up and medications refill. She is followed for widespread pain r/t RA. States her lower back pain flare has resolved following moving her mother. Of note, she details feeling her jaw lock up over the last month. Plans to monitor symptoms and consider work-up. Current medication regimen helps her manage the pain. Denies new concerns. Reports current medication regimen provides 75+% pain relief and allows for increased functionality. Denies side effects from current medication regimen.No other concerns today. Rheumatoid Arthritis Location of the pain is low back. The patient describes the discomfort as achy and sharp. It occurs intermittently. The problem is stable. Symptom is aggravated by lifting. Relieving factors include heat, supine and medications. Rheumatoid Arthritis (comments) [place] presents for a virtual follow up and medications refill. She is followed for widespread pain r/t RA. States her lower back pain has been the most bothersome. Notes that her pain has been aggravated since last OV d/t moving her mom's stuff. States that she feels like she tweaked her back. Current medication regimen helps her manage the pain. Denies new concerns. Reports current medication regimen provides 75+% pain relief and allows for increased functionality. Denies side effects from current medication regimen.No other concerns today. Rheumatoid Arthritis Onset was g radual. Severity level is 1. The patient describes the discomfort as achy and sharp. It occurs intermittently. The problem is stable. Symptom is aggravated by prolonged positioning, running and stairs. Relieving factors include rest, heat and changing positions. Rheumatoid Arthritis (comments) [place] presents for a virtual follow up and medications refill. She recently switched doctors and is liking her new PCP. Her pain is overall stable since [facility].Reports current medication regimen provides 75+% pain relief and allows for increased functionality. Denies side effects from current medication regimen.No other concerns today. Rheumatoid Arthritis Severity le dougie is 2. Location of the pain is head and widespread. The patient describes the discomfort as achy. It occurs persistently. The problem is stable. Symptom is aggravated by prolonged positioning, running and stairs. Relieving factors include changing positions, heat, ice, medications and supine. Rheumatoid Arthritis (comments) [place] presents for a virtual follow up and medication management. Reports her pain is stable this month. Continues to report widespread pain r/t RA. 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 Of note, reports increased emotional distress r/t her father's declining health. States that he was given 3 months to live. Since last OV, she moved her parents from [place] to [place]. Her parents are currently living with her as they look for long-term care options. Reports current medication regimen provides 75% pain relief and allows increased functionality. Denies side effects from current medication regimen. No other concerns today. Rheumatoid Arthritis Location of the pain is widespread. The patient describes the discomfort as achy. It occurs persistently. The problem is stable. Symptom is aggravated by activity. Relieving factors include rest and Rx medications. Rheumatoid Arthritis (comments) [place] presents for a virtual follow up and medication management. Reports her pain is stable this month. Continues to report widespread pain r/t RA. 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 Reports current medication regimen provides 75% pain relief and allows increased functionality. Denies side effects from current medication regimen. No other concerns today. Rheumatoid Arthritis (comments) [place] presents for a virtual follow up and medication management. Reports her pain is stable this month. Continues to report widespread pain r/t RA. 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 Following with ortho regarding bilateral knee pain and injections. Considers weather changes as a contributing factor to this pain. Reports current medication regimen provides 75% pain relief and allows increased functionality. Denies side effects from current medication regimen. No other concerns today. Rheumatoid Arthritis Severity le dougie is 5. The patient describes the discomfort as achy and burning. It occurs persistently. The problem is worsening. Symptom is aggravated by running, stairs, twisting and prolonged positions. Relieving factors include cold, heat, changing positions, lying down, rx meds and sitting. Rheumatoid Arthritis (comments) [place] is here today for follow up and medication management. Reports her pain is stable this month. Continues to report widespread pain r/t RA. Requests a refill on her Percocet today. 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 Most of today's visit was spent discussing how patient needs to present on track at next visit. Patient is aware that this is her last warning.Reports current medication regimen provides 50% pain relief and allows increased functionality. Denies side effects from current medication regimen. No other concerns today. Rheumatoid Arthritis Severity le dougie is 2. Location of the pain is RA and widespread. The patient describes the discomfort as achy. It occurs intermittently. The problem is stable. Symptom is aggravated by prolonged positioning and running. Relieving factors include rest, heat, changing positions, supine and massage. Rheumatoid Arthritis Severity le dougie is moderate. Location of the pain is neck, mid back, wrist and ankle. The patient describes the discomfort as achy, pain with use, dull and sharp. The problem is stable. Symptom is aggravated by rest, reaching, gripping and climbing stairs. Relieving factors include rest and Rx medications. Pertinent negatives include fatigue and headache. Rheumatoid Arthritis (comments) [place] is here today for follow up and medication management. Reports >50% relief with their current regimen and denies any side effects.Reports her pain is stable this month. Notes that she is currently on a family vacation in [place]. Notes that the humidity is more tolerable for her joints compared to the severe cold. Requests a refill on her Percocet today. Current medication regimen allows her to function and work as a [employer] medical transcriber. Patient is not accompanied today and has no other questions or concerns. Rheumatoid Arthritis Location of the pain is widespread. The patient describes the discomfort as achy and sharp. It occurs persistently. The problem is stable. Symptom is aggravated by activity, standing and walking. Relieving factors include Rx medications, cold and heat. Rheumatoid Arthritis (comments) [place] is here for follow-up and medication refills. She returns with widespread pain in the setting of RA. Pain has been relatively stable with occasional flares. Notes her cat earlier this month which has caused some stress. She is looking forward to going on vacation to [place] next month. She requests a refill of her current medication regimen. Reports current medication regimen provides at least 50% pain relief. Denies side effects from current medication regimen. No other concerns today. Rheumatoid Arthritis (comments) [place] is here for follow-up and medication refills. She returns with widespread pain in the setting of RA. Pain has been stable with no changes. She is looking forward to being off of work for the summer. She requests a refill of her current medication regimen as it allows her to complete her ADLs.Reports current medication regimen provides at least 50% pain relief. Denies side effects from current medication regimen. No other concerns today. Rheumatoid Arthritis Onset was devonte angelo. Severity level is 3. Location of the pain is widespread. The patient describes the discomfort as achy and sharp. It occurs persistently. The problem is stable. Symptom is aggravated by prolonged positioning. Relieving factors include changing positions, heat and ice. Pertinent negatives include fatigue and headache. Rheumatoid Arthritis Onset was devonte angelo. Severity level is 8. Location of the pain is widespread. The patient describes the discomfort as achy and sharp. It occurs persistently. The problem is stable. Pertinent negatives include fatigue and headache. Rheumatoid Arthritis (comments) [place] is here for follow-up and medication refills. She returns with widespread pain in the setting of RA. Pain has been relatively stable with occasional flares. Her son recently returned back to school which has allowed her to have more time to rest at home. She would like to continue with the her current medication regimen as it allows her to complete her ADLS and work. Reports current medication regimen provides at least 50% pain relief. Denies side effects from current medication regimen. No other concerns today. Rheumatoid Arthritis (comments) [place] is here for virtual follow- up and medication refills. She presents with widespread pain most bothersome in her hands and feet. Pain has been relatively stable with occasional flares. She reports the swelling in her knee has returned. She is interested in a referral to an orthopedist in the future. She is scheduled for her second COVID-19 vaccine on 08/20/20. 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 She requests a refill of her current medication as it allows her to complete her ADLs.Reports current medication regimen provides at least 50% pain relief. Denies side effects from current medication regimen. No other concerns today. Rheumatoid Arthritis Location of the pain is hands and feet. The patient describes the discomfort as achy and sharp. It occurs persistently. The problem is stable. Symptom is aggravated by housework, lifting and prolonged positioning. Relieving factors include cold, heat and changing positions. Rheumatoid Arthritis Location of the pain is knee. It occurs persistently. Symptom is aggravated by activity, rest, sleep, standing and walking. Relieving factors include rest, Rx medications, cold and heat. Pertinent negatives include fatigue and headache. Rheumatoid Arthritis (comments) [place] is here for follow-up and medication refills. She presents with widespread pain most bothersome in her knees. Pain has returned to baseline since last month. Knee swelling has almost completely resolved since last month. The current medication regimen allows her to complete her ADLS and work at the [employer]. Requests a refill today. Reports current medication regimen provides at least 50% pain relief. Denies side effects from current medication regimen. No other concerns today. Rheumatoid Arthritis (comments) [place] is here for follow-up and medication refills. She presents with widespread pain most bothersome in her knee. Reports swelling around her knee and she inquires how to manage this. She believes this could be related to an increase in activity. She admits to taking more than perscibred which explains why she is one day short on medication. She is interested in a orthopedic referral if her knee swelling does not reduce by next month. Reports current medication regimen provides at least 50% pain relief. Denies side effects from current medication regimen. No other concerns today. Rheumatoid Arthritis Onset was g radual. Severity level is 5. Location of the pain is knee. The patient describes the discomfort as achy and sharp. It occurs persistently. The problem is stable. Symptom is aggravated by activity and standing. Relieving factors include changing positions, ice and heat. Rheumatoid Arthritis Severity le dougie is 3. The patient describes the discomfort as achy. It occurs occasionally. Symptom is aggravated by housework and lifting. Relieving factors include changing positions, heat, ice and lying down. Rheumatoid Arthritis (comments) [place] is here for virtual follow- up and medication refills. She presents with widespread pain in the setting of RA. Pain has been stable with occasional flares related to [place]. She would like to continue with the current medication regimen as it allows her to complete her ADLs without limitations.Reports current medication regimen provides at least 50% pain relief. Denies side effects from current medication regimen. No other concerns today. Rheumatoid Arthritis Onset was devonte angelo. Severity level is 6. Location of the pain is knee and ankle. The patient describes the discomfort as achy. It occurs persistently. The problem is worsening. Symptom is aggravated by prolonged positioning. Relieving factors include changing positions, heat and lying down. Rheumatoid Arthritis (comments) [place] is here for virtual follow- up and medication refills. She presents with widespread pain in the setting of RA. Pain has been stable with occasional flares. She reports an increase in swelling around her knees. She would have her knees drained in the past to relieve swelling. She explains her current level of swelling is not at the level of needing to be drained and she will monitor them the next couple weeks. She would like to continue with the current medication regimen. Reports current medication regimen provides at least 50% pain relief. Denies side effects from current medication regimen. No other concerns today. Rheumatoid Arthritis The patient describes the discomfort as achy, pain with use and sharp. It occurs persistently. The problem is stable. Symptom is aggravated by activity, rest and sleep. Relieving factors include rest, Rx medications, cold and heat. Rheumatoid Arthritis (comments) [place] is here for follow-up and medication refills. She presents with widespread pain in the setting of RA. Her pain has been slightly worse d/t family life stressors. She would like to continue with the current medication regimen as it allows her to complete her ADLs and spend time with her family. Reports current medication regimen provides at least 50% pain relief. Denies side effects from current medication regimen. No other concerns today. Rheumatoid Arthritis (comments) [place] is here for follow-up and medication refills. She c/o widespread pain in the setting of RA. Reports no changes in her pain throughout the month. She recently returned to work multimedia programmer at the [employer] but her pain has been manageable with medication. Reports current medication regimen provides at least 50% pain relief. Denies side effects from current medication regimen. No other concerns today. Rheumatoid Arthritis Severity le dougie is 2. The patient describes the discomfort as achy. It occurs intermittently. The problem is fluctuating. Symptom is aggravated by lifting, prolonged positioning and running. Relieving factors include rest, Rx medications, changing positions, heat and lying down. Rheumatoid Arthritis Severity le dougie is 3. Location of the pain is hands and feet. It occurs persistently. The problem is stable. Symptom is aggravated by rest, housework, prolonged positioning and sitting. Relieving factors include heat, changing positions, lying, medications and rest. Rheumatoid Arthritis (comments) Patient is here for follow-up and medication refills. She presents with widespread pain in the setting of RA. Overall her pain has remained stable this month and she would like to continue with the current medication regimen.Reports current medication regimen provides at least 50% pain relief. Denies side effects from current medication regimen. No other concerns today. Rheumatoid Arthritis (comments) [place] is here for virtual follow- up and medication refills. Widespread joint pain in the setting of RA has been stable with intermittent pain flare-upsVirgin[place] had to take an emergency trip to [place] to take care of her dad who was in car accident. She presents with no medication and has had no medication for a couple weeks and believes that her mother who has dementia threw them away.Reports current medication regimen provides at least 50% pain relief. Denies side effects from current medication regimen. No other concerns today. Rheumatoid Arthritis Severity le dougie is moderate. Location of the pain is joints. The patient describes the discomfort as achy. It occurs persistently. The problem is worsening. Symptom is aggravated by climbing stairs, housework, running and stairs. Relieving factors include rest, Rx medications, cold, heat and changing positions. Pertinent negatives include fatigue and headache. Rheumatoid Arthritis (comments) [place] presents for a virtual follow up and medications refill. Reports current medication regimen provides 50+% pain relief and allows for increased functionality. Denies side effects from current medication regimen.Reports that her widespread joint pain has no changes over the last month. Notes that she recently had some stressors involving her son which always increases her pain. Primary sources of pain is her hands and feet. When her pain is too severe she will rest and not utilize those joints which seems to help along with her medication regimen.Patient is not accompanied today. No other concerns today. Rheumatoid Arthritis Severity le dougie is 3. Location of the pain is bilateral hand, bilateral knee and bilateral forefoot. The patient describes the discomfort as achy. It occurs persistently. The problem is stable. Symptom is aggravated by rest. Relieving factors include rest and cold. Rheumatoid Arthritis (comments) [place] presents for a virtual followup and medication refill for widespread pain in the setting of RA. Prescribed medications offer 50% pain relief and allow for increased functionality. Denies SE.Reports that her overall pain has been stable this month. Notes that she has been enjoying the weather and completing yard work as well as attending Zoom classes with her friends. Sometimes the next day she will notice that her hands or back is sore but this subsides within a day or two. Patient is not accompanied today. No further questions or concerns. Rheumatoid Arthritis Severity le dougie is 3. Location of the pain is neck, low back, knee and feet. The patient describes the discomfort as achy. It occurs persistently. The problem is stable. Symptom is aggravated by standing, bending and housework. Relieving factors include rest, Rx medications, heat, lying down and changing positions. Pertinent negatives include fatigue and headache. Rheumatoid Arthritis (comments) [place] presents for a followup and medication refill for widespread pain in the setting of RA. Prescribed medications offer 50% pain relief and allow for increased functionality. Denies SE.She does admit to self escalation of medication attributed to inactivity with being at home. Feels once she is able to return to work she will be in less pain. Most bothersome is her left knee and feet, however this is typical and well managed with medications.No further questions or concerns. Rheumatoid Arthritis Severity le dougie is 3. The patient describes the discomfort as achy. It occurs intermittently. The problem is stable. Symptom is aggravated by housework, lifting, running and stairs. Relieving factors include heat, changing positions and lying down. Rheumatoid Arthritis Severity le dougie is 3. The patient describes the discomfort as achy. It occurs persistently. The problem is stable. Symptom is aggravated by standing, housework and prolonged positions. Relieving factors include Rx medications, heat and changing positions. Rheumatoid Arthritis (comments) [place] is here today for a followup and medication refill for widespread pain in the setting of RA. Prescribed medications offer 30% pain relief and allow for increased functionality. 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 Diffuse RA pain has remained the same in terms of location, character, and severity. Both feet and left knee are currently the most bothersome which is attributed to weather fluctuations and housework. She has stayed home for the past few weeks d/t compromised immune system.No further questions or concerns. Rheumatoid Arthritis (comments) [place] is here today for a followup and medication refill for widespread pain in the setting of RA. Pain today is mostly stable, tolerable with medications Current medication regimen provides 70% relief and improves daily function. Denies side effects from current medication regimen. Patient is not accompanied today and has no further questions or other concerns. Rheumatoid Arthritis Severity le dougie is moderate. Location of the pain is head. It occurs persistently. The problem is stable. Symptom is aggravated by activity. Relieving factors include Rx medications. Pertinent negatives include fatigue and headache. Rheumatoid Arthritis (comments) [place] is here today for a followup and medication refill for widespread pain in the setting of RA. Her pain has been mostly stable this month with intermittent flare-ups. She has been working on taking down her [employer] decorations which increases her pain, but is hoping this will be completed this month. Current medication regimen provides 70% relief and improves daily function. Denies side effects from current medication regimen. Patient is not accompanied today and has no further questions or other concerns. Rheumatoid Arthritis Severity le dougie is 2. Location of the pain is head. The patient describes the discomfort as achy. It occurs intermittently. The problem is stable. Symptom is aggravated by housework and prolonged positioning. Relieving factors include Rx medications, changing positions, heat, ice, lying down and massage. Pertinent negatives include fatigue and headache. Rheumatoid Arthritis (comments) [place] is here today for follow up and medication management. Presents with #3 Percocet - on track. Reports 50% relief with their current regimen and denies any side effects. States her overall widespread joint pain is worth during the winter months. She has had a few flare ups this month but were overall well controlled with medications. Patient is not accompanied today and has no other questions or concerns. Rheumatoid Arthritis Severity le dougie is moderate. Location of the pain is widespread and head. It occurs persistently. The problem is fluctuating. Symptom is aggravated by activity. Relieving factors include Rx medications. Pertinent negatives include fatigue and headache. Rheumatoid Arthritis (comments) [place] is here today for a followup and medication refill for widespread pain in the setting of RA. Pain today is fluctuating, tolerable with medications. 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 Denies side effects from current medication regimen. Patient is not accompanied today and has no further questions or other concerns. Rheumatoid Arthritis Location of the pain is right hand, bilateral forefoot and head. The patient describes the discomfort as achy. It occurs persistently. The problem is fluctuating. Symptom is aggravated by housework, prolonged positioning and running. Relieving factors include changing positions, heat, lying down and sitting. Pertinent negatives include fatigue and headache. Rheumatoid Arthritis Severity le dougie is 2. Location of the pain is head. It occurs persistently. The problem is stable. Symptom is aggravated by housework, prolonged positioning and standing. Relieving factors include changing positions, heat, lying down, PT and rest. Pertinent negatives include fatigue and headache. Rheumatoid Arthritis (comments) [place] is here today for a followup and medication refill for widespread pain in the setting of RA. Current medication regimen provides 40% relief and improves daily function. Denies side effects from current medication regimen. Pain today is stable, manageable with medications.Patient is not accompanied today and has no further questions or other concerns. Rheumatoid Arthritis (comments) [place] is here today for a followup and medication refill. She presents with #5.5 Percocet- on track. Current medication regimen provides 75% relief. Denies side effects from current medication regimen. Pain today is stable. 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 Patient is not accompanied today and has no further questions or other concerns. Rheumatoid Arthritis Severity le dougie is 2. Location of the pain is left knee and head. The patient describes the discomfort as achy. It occurs persistently. The problem is stable. Symptom is aggravated by prolonged positioning, running, sitting and twisting. Relieving factors include lying down, physical therapy, rest, heat and sitting. Pertinent negatives include fatigue and headache. Rheumatoid Arthritis Severity le dougie is 2. Location of the pain is bilateral hand, bilateral knee, bilateral forefoot and head. The patient describes the discomfort as achy. It occurs intermittently. The problem is fluctuating. Symptom is aggravated by prolonged positioning and running. Relieving factors include heat, ice, lying down and massage. Pertinent negatives include fatigue and headache. Rheumatoid Arthritis (comments) [place] is here today for a followup and medication refill. She presents with #5 Percocet- short. Current medication regimen provides 75-80% relief. Denies side effects from current medication regimen. Pain today is fluctuating. Has no major changes or concerns to report. Regarding her medication shortage today, [place] states some days she requires an additional dose to control her pain. Feels she may benefit from an increase in her medications today to avoid coming up short again in the future. Patient is not accompanied today and has no further questions or other concerns. Rheumatoid Arthritis (comments) [place] is here today for a followup and medication refill. She presents with #5 Percocet- on track. Current medication regimen provides 55-75% relief. Denies side effects from current medication regimen. Pain today is fluctuating. Recently returned from a vacation and has been doing well overall. Has no major changes or concerns to report today.Patient is not accompanied today and has no further questions or other concerns. Rheumatoid Arthritis Severity le dougie is 2. Location of the pain is bilateral knee, bilateral ankle and head. The patient describes the discomfort as achy. It occurs persistently. The problem is changing in character. Symptom is aggravated by prolonged positioning. Relieving factors include Rx medications, sitting, changing positions, heat, lying down, massage and. Pertinent negatives include fatigue and headache. Rheumatoid Arthritis (comments) [place] is here today for a followup and medication refill. She presents with #4 Percocet- 2 tablets short. Current medication regimen provides 50% relief. Denies side effects from current medication regimen. Pain today is fluctuating. Reports some increased pain while traveling over the holiday weekend and admits to self-escalation of her medications while she was away. Of note patient will be going on a train to [facility] in the near future.Patient is not accompanied today and has no further questions or other concerns. Rheumatoid Arthritis Severity le dougie is 2. Location of the pain is head, BL hands and BL feet. The patient describes the discomfort as achy. It occurs persistently. The problem is fluctuating. Symptom is aggravated by prolonged positioning and running. Relieving factors include rest, Rx medications, changing positions, heat, lying down and massage. Rheumatoid Arthritis (comments) Virginia is here today for a followup and medication refill. She presents with #15 Percocet-on track. Current medication regimen provides 90% relief. Denies side effects from current medication regimen. Pain today is stable, with no major changes or concerns to report. Did have some trouble making up her medication over the last two weeks, however reports she was able to catch up. Patient is not accompanied today and has no further questions or other concerns. Rheumatoid Arthritis Severity le dougie is 1. Location of the pain is head, BL knees and BL ankles. Symptom is aggravated by bending, prolonged positioning, running and standing. Relieving factors include changing positions, heat, lying down and sitting. Pertinent negatives include fatigue and headache. Rheumatoid Arthritis (comments) Virginia is here today for a followup and medication refill. She presents with #7 Percocet-over 3 days short. Current medication regimen provides 25-50% relief. Denies side effects from current medication regimen. Pain today is fluctuating. Reports recent seasonal changes have caused some increased pain, and believes she may have self-escalated her medications. Patient is not accompanied today and has no further questions or other concerns. Rheumatoid Arthritis Severity le dougie is moderate. Location of the pain is bilateral knee, bilateral ankle and head. The patient describes the discomfort as achy. It occurs intermittently. The problem is fluctuating. Symptom is aggravated by lifting, prolonged positioning, running and walking. Relieving factors include rest, Rx medications, changing positions, heat, lying down and PT. Pertinent negatives include fatigue and headache. Rheumatoid Arthritis (comments) Virginia is here today for a followup and medication refill. She presents with #13 Percocet- on track. Current medication regimen provides 25-50% relief. Denies side effects from current medication regimen. Pain today is worse d/t recent weather changes which aggravate her arthritis. Also continues to have pain r/t recent finger fracture, noting she is eager for her finger to heal so she can return [place] [employer] this [place]. Patient is not accompanied today and has no further questions or other concerns. Rheumatoid Arthritis Location of the pain is bilateral hand, bilateral mid foot and head. The patient describes the discomfort as achy. It occurs persistently. The problem is worsening. Symptom is aggravated by prolonged positioning and running. Relieving factors include changing positions, heat, lying down and PT. Pertinent negatives include fatigue and headache. Rheumatoid Arthritis Severity le dougie is 1. Location of the pain is right hand. It occurs intermittently. The problem is stable. Symptom is aggravated by walking and running. Relieving factors include heat, lying down, massage, medications and rest. Pertinent negatives include fatigue and headache. Rheumatoid Arthritis (comments) Virginia is here today for a followup and medication refill. She presents with #2 Percocet- on track. Current medication regimen provides 50% relief. Denies side effects from current medication regimen. Pain today is stable. Reports she recently fractured a finger on her R hand while bowling which has caused increased pain today. Expresses frustration regarding how easily her finger was fractured, however has no other concerns to report today.Patient is not accompanied today and has no further questions or other concerns.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
[2022-09-08 09:43] LABS: Basophils Absolute Auto 0.05 K/uL (0.00-0.30); Eosinophils Percent Auto 10.3 % (0.0-7.0); Hematocrit 33.3 % (33.0-51.0); Hemoglobin* 10.7 gm/dL (12.0-16.0); Immature Granulocytes Abs Auto 0.01 K/uL (0.00-0.30); Immature Granulocytes Pct Auto 0.2 %; Lymphocytes Percent Auto 35.5 % (20-44); Mean Corpuscular HGB Conc 32 gm/dL (32-36); Mean Corpuscular Hemoglobin 32 pg (26-34); Mean Corpuscular Volume 99 fL (80-100); Monocytes Percent Auto 7.5 % (0.0-11.0); Neutrophils Absolute Auto 2.31 K/uL (1.7-7.0); Neutrophils Percent Auto 45.5 % (42.0-72.0); Platelet Count* 405 K/uL (140-440); RDW Coefficient of Variation % 13.9 % (11.5-15.5); Red Blood Count 3.35 m/uL (4.00-5.20); White Blood Count* 5.07 K/uL (4.50-11.00)
[2022-09-08 09:44] LABS: Slide Review Reflex No
[2022-09-08] MEDS: 0.9 % SODIUM CHLORIDE 1000 ml 1,000 ML 6000 ML IV (09:47)
[2022-09-08 09:58] LABS: Chloride* 105 mmol/L (96-114); Potassium* 3.9 mmol/L (3.6-5.1); Sodium* 137 mmol/L (135-149)
[2022-09-08 10:01] LABS: Blood Urea Nitrogen* 7 mg/dL (7-30); Carbon Dioxide* 30 mmol/L (20-32); Creatinine* 0.6 mg/dL (0.5-1.5); Est. Creatinine Clearance* 109.17; Estimated Glomerular Filt Rate 103 ml/min; Glucose* 92 mg/dL (60-115)
[2022-09-08 10:02] LABS: Calcium* 8.4 mg/dL (8.4-10.6)
--- NOTE | 2022-09-08 11:14 | PM.GSCN ---
History of Present Illness Consult details Date Seen: 09/08/22 Consult date: 09/08/22 Narrative: Patient presented to the emergency department with drainage from a right lower quadrant surgical incision. She was in [place] when she developed an incarcerated inguinal hernia. This was repaired via an open technique in [place] on 08/26/2022. Per the patient mesh was placed and no bowel resection was needed. Immediately following the procedure she did have a significant amount of swelling. On Tuesday she noticed bruising and started to have bloody drainage from the incision site. She denies any surrounding redness of the incision, no fever or chills. She does have some tenderness to the area. She has otherwise been tolerating a regular diet and having regular bowel movements. Her medical history significant for rheumatoid arthritis, for which she chronically takes opioid medications. She takes 3 and half Percocet per day to control this pain. Review of Systems Status of ROS: Reports: 6 or more systems reviewed and unremarkable except as noted in History and below PFSH [facility] Social History Smoking Status: Never smoker Little interest or pleasure in doing things: several days Feeling down, depressed, or hopeless: several days Meds Home Medications and Allergies Home Medications Medication Instructions Recorded Confirmed Type adalimumab 40 mg/0.8 mL kit subcut 01/18/22 08/09/22 History subcutaneous pen kit (Humira Pen) methotrexate sodium 2.5 mg tablet 2.5 mg PO 01/18/22 08/09/22 History oxycodone-acetaminophen 5 mg-325 1 tab PO 01/18/22 08/09/22 History mg tablet salsalate 500 mg tablet 1,000 mg PO 01/18/22 08/09/22 History Allergies Allergy/AdvReac Type Severity Reaction Status Date / Time No Known Drug Allergies Allergy Verified 09/08/22 09:13 Exam Narrative: Exam Narrative: General: Alert and oriented, no acute distress. Nontoxic in appearance Respiratory: Equal breath rise bilaterally, maintained on room air CV: Regular rhythm rate, well perfused Abdomen: Right lower quadrant incision with a softball size hematoma in the subcutaneous space. There is a 2 cm opening on the medial aspect of the transverse incision with drainage of dark venous blood. No evidence of active bleeding and no concern for infection at this time. There is no surrounding erythema or induration. Drainage does not appear purulent. Abdomen is otherwise nontender, nondistended. Const: Vital Signs, click to edit/add: Vital Signs - 24 hr 09/08/22 09:08 Temperature 98.3 F Pulse Rate [Right Pulse Oximeter] 57 L Respiratory Rate 16 Blood Pressure [Ri ght Upper Arm] 142/98 H Pulse Oximetry 99 Oxygen Delivery Me thod Room Air Results Labs Labs: Abnormal lab results 09/08/22 Range/Units 09:30 RBC 3.35 L (4.00-5.20) m/uL Hgb 10.7 L (12.0-16.0) gm/dL Eos % (Auto) 10.3 H (0.0-7.0) % Diabetes panel 09/08/22 Range/Units 09:30 Sodium 137 (135-149) mmol/L Potassium 3.9 (3.6-5.1) mmol/L Chloride 105 (96-114) mmol/L Carbon Dioxide 30 (20-32) mmol/L BUN 7 (7-30) mg/dL Creatinine 0.6 (0.5-1.5) mg/dL Glucose 92 (60-115) mg/dL Calcium 8.4 (8.4-10.6) mg/dL Calcium panel 09/08/22 Range/Units 09:30 Calcium 8.4 (8.4-10.6) mg/dL Pituitary panel 09/08/22 Range/Units 09:30 Sodium 137 (135-149) mmol/L Potassium 3.9 (3.6-5.1) mmol/L Chloride 105 (96-114) mmol/L Carbon Dioxide 30 (20-32) mmol/L BUN 7 (7-30) mg/dL Creatinine 0.6 (0.5-1.5) mg/dL Glucose 92 (60-115) mg/dL Calcium 8.4 (8.4-10.6) mg/dL Adrenal panel 09/08/22 Range/Units 09:30 Sodium 137 (135-149) mmol/L Potassium 3.9 (3.6-5.1) mmol/L Chloride 105 (96-114) mmol/L Carbon Dioxide 30 (20-32) mmol/L BUN 7 (7-30) mg/dL Creatinine 0.6 (0.5-1.5) mg/dL Glucose 92 (60-115) mg/dL Calcium 8.4 (8.4-10.6) mg/dL All other labs normal. Assessment and Plan Assessment and plan (1) Postoperative hematoma: Status: Acute Plan Patient is a 61-year-old female who presents with a postoperative hematoma of the subcutaneous space. At this time the hematoma does not appear infected. The medial opening of the incision was interrogated and does seem to undermined approximately 5 cm laterally, 3 cm medial and 1 cm superior. There is no purulence in the drainage and no concern for infection at this time. The mesh is not palpated or visible at this time. The wound was gently irrigated and packed with 1 in Kerlix and an outer dressing Mepilex. Recommend that patient continue with daily dressing changes, or more often as needed for saturation of dressings. Will plan to see the patient next week for a wound check. She was instructed to call with any concerns for infection such as increasing pain, redness or purulent drainage. General Surgery Procedures I/D Type: hematoma/seroma Site: abdomen Side (if applicable): right Sedation/analgesia: other (Dilaudid 0.5 mg) Technique: incised with #11 blade Amount of fluid (mL): 15 Irrigation: Yes Packing used?: plain Complications: other
== END 2022-09-08 10:41 | disposition home or self-care (01) ==
PROVIDERS: Emergency Provider Family Medicine; PCP Family Medicine
DX: L76.32 Postprocedural hematoma of skin and subcutaneous tissue following other procedure (principal)
CPT/HCPCS: 36415; 80048; 85025; 99283; 99284; J7030

== ENCOUNTER 2023-04-19 10:04 | Outpatient (CLI) | payer BC, SELFPAY ==
--- OUTSIDE RECORDS SUMMARY | 2023-04-19 10:07 | XMS_ITS | Continuity of Care Document ---
Author Name Unknown Organization [facility] Address [address] [place] [address] Phone Care Team Providers Care Job Tracer Name Role Phone Lima Arcelia VERA Unavailable Unavailable Allergies, Adverse Reactions, Alerts Substance Reaction Status Criticality No Known Allergies Active No Inform ation Medications Medication Instructions Dosage Effective Dates (start - stop) Status Comments METHOTREXATE (unknown strength) take 8 tablet by oral route every week Not Available - Active SALSALATE (unknown strength) take 1 Tablet by oral route 2 times every day Not Available - Active Humira 40 mg/0.8 mL subcutaneous syringe kit inject 0.8 milliliter by subcutaneous route every 2 weeks in the abdomen or thigh (rotate sites) 40 MG - Active Percocet 5 mg-325 mg tablet take 1 tablet by oral route every 8 hours as needed 1 tablet - Active Percocet 5 mg-325 mg tablet take 1 tablet by oral route 4x/day or as needed - No Longer Active chronic pain. 4 day supply until seen by a different pain clinic per [facility] referral. Procedures Procedure Date Est Pt Eval Telehealth Est Pt Eval Telehealth Est Pt Eval 25 Min Telehealth 3 Est Pt Eval 25 Min Telehealth 3 Est Pt Eval 25 Min Telehealth 3 Est Pt Eval 25 Min Toxicology Test Group B Est Pt Eval 25 Min Telehealth 3 Est Pt Eval 25 Min Telehealth 3 Est Pt Eval 25 Min Telehealth 2 Est Pt Eval 25 Min PT Eval - Low Complexity Toxicology Test Group B Est Pt Eval 25 Min Telehealth 2 Est Pt Eval 25 Min Psychiatric Diagnostic Evaluation Teleph one Only New Pt Eval 45 Min Toxicology Test Group B Advance Directives Directive Yes / No Effective Date File Name Life Support Not Answered N/A N/A Other Directive No N/A N/A WARNING:The information contained in this section is historical and is provided for information only and does not constitute a legal document or any assurance that the information is still accurate. Please verify the information with the pichardo of the legal document before using it for clinical purposes. Encounters Encounter Description Practice Location Reason(s) For Visit Diagnoses Date Provider Providers Copied on Encounter Est Pt Eval Telehealth [facility], [address], [place], [id number], [place] tel:[phone] [facility] bilateral knee pain (chief complaint) Rheumatoid arthritis, unspecified 3 Lima Arcelia. [address] [place], [address], [place]. tel:[phone] Referring Provider: Vilma Bell nd, [address], [place], [address]. tel:[phone] Est Pt Eval Telehealth [facility], [address], [place], [address], [place] tel:[phone] [facility] FEET (chief complaint) Rheumatoid arthritis, unspecifiedPain in hand 3 Ketola Hampshire. [address], [facility] [address], [place], [id number], [place]. tel:[phone] Referring Provider: Vilma Bell nd, [address], [place], [address]. tel:[phone] Est Pt Eval 25 Min Telehealth [facility], [address], [place], [place], [address], [place] tel:[phone] [facility] bilateral foot pain (chief complaint) Rheumatoid arthritis, unspecifiedPain in handBody mass index (BMI) 24.0-24.9, adult 3 Ketola Oriana. [address], [place], [place], [address], [place]. tel:[phone] Referring Provider: Vilma Bell nd, [address], [place], [address]. tel:[phone] Est Pt Eval 25 Min Telehealth [facility], [address], [place], [place], [address], [place] tel:[phone] [facility] bilateral knee pain (chief complaint) Rheumatoid arthritis, unspecifiedPain in handBody mass index (BMI) 24.0-24.9, adult 3 Ketola Oriana. [address], [address], [place], [place], [address], [place]. tel:[phone] Referring Provider: Vilma Bell nd, [address], [place], [address]. tel:[phone] Est Pt Eval 25 Min Telehealth [facility], [address], [place], [place], [id number], [place] tel:[phone] [facility] Body aches (chief complaint) Rheumatoid arthritis, unspecifiedPain in hand Aug- 3 Christofer Pringle. [address], [address], [place], [address], [place]. tel:[phone] Referring Provider: Vilma Bell nd, [address], [place], [address]. tel:[phone] Est Pt Eval 25 Min [facility], [address], [place], [place], [id number], [place] tel:[phone] [facility] bilateral foot pain (chief complaint) Rheumatoid arthritis, unspecifiedPain in handBody mass index (BMI) 24.0-24.9, adult 3 Lima Arcelia. [address] [place], [address], [place]. tel:[phone] Referring Provider: Vilma Bell nd, [address], [place], [address]. tel:[phone] [facility], [address], [place], [place], [address], [place] tel:[phone] [facility] No Information 3 Lima Arcelia. [address] [place], [address], [place]. tel:[phone] Referring Provider: Vilma Bell nd, [address], [place], [address]. tel:[phone] Est Pt Eval 25 Min Telehealth [facility], [address], [place], [place], [id number], [place] tel:[phone] [facility] Hand Pain (chief complaint) Rheumatoid arthritis, unspecifiedPain in hand 3 Ketola Oriana. [address], [place], [place], [address], [place]. tel:[phone] Referring Provider: Vilma Bell nd, [address], [place], [address]. tel:[phone] Est Pt Eval 25 Min Telehealth [facility], [address], [place], [place], [address], [place] tel:[phone] [facility] bilateral foot pain (chief complaint) Rheumatoid arthritis, unspecifiedPain in handBody mass index (BMI) 22.0-22.9, adult 3 Ketola Hampshire. [address], [place], [place], [id number], [place]. tel:[phone] Referring Provider: Vilma Bell nd, [address], [place], [address]. tel:[phone] Est Pt Eval 25 Min Telehealth GORGE Patrick, [address], [place], [place], [address], [place] tel:[phone] [facility] Bilateral hand and foot pain (chief complaint) Rheumatoid arthritis, unspecifiedPain in handBody mass index (BMI) 21.0-21.9, adult 2 Ketola Hampshire. [address], [address], [place], [place], [address], [place]. tel:[phone] Referring Provider: Vilma Bell nd, [address], [place], [address]. tel:[phone] Est Pt Eval 25 Min [facility], [address], [place], [place], [id number], [place] tel:[phone] [facility] Hand Pain (chief complaint) bilateral foot pain (chief complaint) Rheumatoid arthritis, unspecifiedPain in handBody mass index (BMI) 21.0-21.9, adult 2 Ketola Hampshire. [address], [address], [place], [place], [address], [place]. tel:[phone] Referring Provider: Vilma Bell nd, [address], [place], [address]. tel:[phone] GORGE Patrick, [address], [place], [place], [id number], [place] tel:[phone] [facility] Rheumatoid arthritis, unspecifiedPain in unspecified handPain in unspecified foot 2 Spencer Carley. [address], [place], [address], [place]. tel:[phone] Referring Provider: Vilma Bell nd, [address], [place], [address]. tel:[phone] GORGE Patrick, [address], [place], [place], [address], [place] tel:[phone] [facility] No Information 2 Ketola Hampshire. [address], [place], [place], [address], [place]. tel:[phone] Referring Provider: Vilma Bell nd, [address], [place], [address]. tel:[phone] Est Pt Eval 25 Min Telehealth MENDEZ Patrick, [address], [place], [place], [id number], [place] tel:[phone] [facility] feet pain (chief complaint) hand pain (chief complaint) Rheumatoid arthritis, unspecifiedPain in handBody mass index (BMI) 23.0-23.9, adult 2 Ketola Oriana. [address], [place], [place], [address], [place]. tel:[phone] Referring Provider: Vilma Bell nd, [address], [place], [address]. tel:[phone] Est Pt Eval 25 Min GORGE Patrick, [address], [place], [place], [address], [place] tel:[phone] [facility] right foot pain (chief complaint) Rheumatoid arthritis, unspecifiedPain disorder with related psychological factorsPain in handBody mass index (BMI) 23.0-23.9, adult Jan- 2 Ketola Oriana. [address], [address], [place], [place], [address], [place]. tel:[phone] Referring Provider: Vilma Bell nd, [address], [place], [address]. tel:[phone] Psychiatric Diagnostic Evaluation Telephone Only GORGE Patrick, [address], [place], [place], [address], [place] tel:[phone] [facility] Pain disorder with related psychological factors 2 Jose Adairta. [address], [place], [place], [address], [place]. tel:[phone] Referring Provider: Vilma Bell nd, [address], [place], [address]. tel:[phone] New Pt Eval 45 Min [facility], [address], [place], [place], [address], [place] tel:[phone] [facility] bilateral foot pain (chief complaint) hands (chief complaint) Rheumatoid arthritis, unspecifiedPain in handPain in foot 2 Tahmina Mckinley. [address], [place], [place], [address], [place]. tel:[phone] Referring Provider: Vilma Bell nd, [address], [place], [address]. tel:[phone] GORGE Patrick, [address], [place], [place], [address], [place] tel:[phone] [facility] No Information 2 Tahmina Mckinley. [address], [place], [place], [address], [place]. tel:[phone] Referring Provider: Vilma Bell nd, [address], [place], [address]. tel:[phone] Family History Family Member Type Diagnosis Age At Onset No Information Payers Payer name Insurance type Covered republican ID Geovanna hernández(s) [facility] [facility] [id number] Social History Type Description Quantity Date Captured Comments Alcohol Use Details Caffeine Use Details coffee and soda 5 cups per day Tobacco Use Status Current non-smoker Smoking Status Former smoker Non-Smoking Tobacco Use Details : No Details Available : No Details Available Sex Female Vital Signs Date / Time: Height Weight BMI Pulse Rate Blood Pressure Temperature Respiratory Rate Body Surface Area Head Circumference Head Circ. Percentile Wt./Eagle. Percentile BMI percentile Pulse Ox Inhaled Ox 11:28 AM 70.00 in 77.564 kg (171.00 lbs) 24.5 4 kg/m eter (2) 1.96 meter(2) Chief Complaint And Reason For Visit From encounter dated '12/28/2022 12:30'. bilateral knee pain (chief complaint). Description: Location: bilateral knee. The pain radiates to the feet bilaterally. The pain is aching. The pain is aggravated by movement. The pain is relieved by heat, rest and Lying down. Reason For Referral Reason For Referral No Information Plan Of Treatment Date Type Action Status Goal Tobacco cessation counseling completed Goal Lifestyle education regardin g diet completed Goal Lifestyle education regardin g diet completed Goal Lifestyle education regardin g diet completed Goal Lifestyle education regardin g diet completed Goal Lifestyle education regardin g diet completed Goal Lifestyle education regardin g diet completed Goal Lifestyle education regardin g diet completed Oct-21-2022 Goal Lifestyle education regardin g diet completed Goal Lifestyle education regardin g diet completed Referral Ordered: Pain Medicine (related to Rheumatoid arthritis, unspecified) ordered Referral Ordered: Referrals: Pain Medicine. Location: [facility]. Consult ordered Referral Ordered: Referrals: Behavioral Health. Evaluate and treat ordered Referral Referred To: Physical Therapy Ordered: Physical Therapy. Evaluate and treat ordered History Of Present Illness Encounter Date Complaint History Of Prese nt Illness bilateral knee pain Location: bi lateral knee. The pain radiates to the feet bilaterally. The pain is aching. The pain is aggravated by movement. The pain is relieved by heat, rest and Lying down. FEET The symptoms are described as ache. Aggravating factors include work, standing, walk, ADLs. Relieving factors include rest, heat. bilateral foot pain Location: bi lateral HANDS. The pain is burning and NUMB. There are no aggravating factors. The pain is relieved by heat, pain/RX meds and rest. bilateral knee pain Location: bi lateral Hand and Feet. The pain is aching. The pain is aggravated by movement and Prolonged activities. The pain is relieved by heat, pain/RX meds and rest. Body aches The pain is achi ng. The pain is aggravated by movement and Prolonged activities. The pain is relieved by heat, pain/RX meds and rest. bilateral foot pain Severity lev el is 2. Location: bilateral hands and feet. The pain is aching. The pain is aggravated by lifting, walking, daily activities and weather changes. The pain is relieved by heat, pain/RX meds and rest. Hand Pain Severity level i s 5. The problem is worsening. Location: left Hand and and knees. The pain is aggravated by Daily activities. The pain is relieved by pain/RX meds and rest. bilateral foot pain Severity lev el is 2. The problem is stable. Location: bilateral hands and left knee. The pain is aching and throbbing. The pain is aggravated by Daily Activities. The pain is relieved by heat, pain/RX meds and rest. Bilateral hand and foot pain The symptoms are described as aching. Aggravating factors include Daily activities. Relieving factors include Rest, Lying down and Pain meds/drugs. Hand Pain Location: bilate ral hand. bilateral foot pain Location: bi lateral foot. feet pain Aggravating fact ors include Standing. Relieving factors include Heat and Pain meds/drugs. Associated symptoms include ache. hand pain Location: bilate ral hand. The pain is aching. The pain is aggravated by standing and prolonged activities. The pain is relieved by heat and pain/RX meds. right foot pain Location: right foot (top of foot). bilateral foot pain Location: bi lateral foot. The pain is dull, piercing and sharp. The pain is aggravated by bending, climbing stairs, walking and standing. The pain is relieved by heat, pain/RX meds and rest. hands Aggravating fact ors include Bending, Changing positions, Pushing and Twisting. Relieving factors include Heat, Pain meds/drugs and Injection. Functional Status Date Functional Assessmen t Pain Score 07/30 Instructions Date Instruction Additional Infor john -Sent a 4-day script of Percocet 5mg 4x a day #16 pills for fill today-Keep scheduled upcoming visit with [facility]. Related to Rheumatoid arthritis, unspecified - Refill and Continu e Percocet 5-325mg 4x/day as needed for pain, #28, for fill 12/18. One-week supply, enough until your appt with [facility]- Keep scheduled appt with [facility] at the end of the month- Follow up with Endocrinology Nurse as scheduled - Follow up as needed for interventional procedures Related to Rheumatoid arthritis, unspecified Same plan of care as statement for above diagnosis, no changes Related to Pain in hand Same plan of care as statement for above diagnosis, no changes Related to Pain in hand - Refill and Continu e Percocet 5-325mg 4x/day, as needed for pain, for fill 11/18- Follow up with Endocrinology Nurse as scheduled - Schedule appt with [facility] for medication management - Follow up in 4 weeks; telehealth okay Related to Rheumatoid arthritis, unspecified Lifestyle education regarding di et Related to Body mass index [BMI] 24.0-24.9, adult Same plan of care as statement for above diagnosis, no changes Related to Pain in hand - Refill and Continu e Percocet 5-325mg 4x/day, as needed for pain, for fill 10/17 OK for one day early refill due to holiday pharmacy hours- Follow up with Endocrinology Nurse as scheduled - Consider following up with [facility] for medication management in the future- Follow up in 4 weeks; telehealth okay Related to Rheumatoid arthritis, unspecified Lifestyle education regarding di et Related to Body mass index [BMI] 24.0-24.9, adult - Refill and Continu e Percocet 5-325mg 4x/day, as needed for pain, for fill 09/18- Follow up with Endocrinology Nurse as scheduled - Follow up in 4 weeks; telehealth okay Related to Rheumatoid arthritis, unspecified Same plan of care as statement for above diagnosis, no changes Related to Pain in hand Same plan of care as statement for above diagnosis, no changes Related to Pain in hand - Refill and Continu e Percocet 5-325mg 4x/day, as needed for pain, for fill 08/19/22- Try Voltaren gel/cream for left hand to decrease inflammation/pain - Follow up with Endocrinology Nurse as scheduled - Follow up in 4 weeks; telehealth okay Related to Rheumatoid arthritis, unspecified Lifestyle education regarding di et Related to Body mass index [BMI] 24.0-24.9, adult - Refill and Continu e Percocet 5-325mg 4x/day, as needed for pain, for fill 07/11/22- Try icing your left hand to decrease inflammation- Follow up with Endocrinology Nurse as scheduled - Follow up in 4 weeks; in clinic Related to Rheumatoid arthritis, unspecified Same plan of care as statement for above diagnosis, no changes Related to Pain in hand Same plan of care as statement for above diagnosis, no changes Related to Pain in hand - Refill and Continu e Percocet 5-325mg 4x/day, as needed for pain, for fill 06/11/22- Follow up with Endocrinology Nurse as scheduled - Follow up in 4 weeks; telehealth OK Related to Rheumatoid arthritis, unspecified Lifestyle education regarding di et Related to Body mass index [BMI] 22.0-22.9, adult Same plan of care as statement for above diagnosis, no changes Related to Pain in hand - Refill and Continu e Percocet 5-325mg 4x/day, as needed for pain, for fill 05/12/22- Follow up in 4 weeks; telehealth OK Related to Rheumatoid arthritis, unspecified Lifestyle education regarding di et Related to Body mass index [BMI] 21.0-21.9, adult Same plan of care as statement for above diagnosis, no changes Related to Pain in hand - Refill and Continu e Percocet 5-325mg 4x/day, as needed for pain, for fill 04/12/22- Urine provided in clinic today- Follow up in 4 weeks; telehealth OK Related to Rheumatoid arthritis, unspecified Lifestyle education regarding di et Related to Body mass index [BMI] 21.0-21.9, adult Lifestyle education regarding di et Related to Body mass index [BMI] 21.0-21.9, adult Same plan of care as statement for above diagnosis, no changes Related to Pain in hand -Refill and Continue Percocet 5-325mg 4x/day, as needed for pain, for fill 03/12/22-Consider Belbuca in the future for pain relief - Schedule PT for evaluation at next follow-up visit in clinic-Follow up in 4 weeks in clinic Related to Rheumatoid arthritis, unspecified Lifestyle education regarding di et Related to Body mass index [BMI] 23.0-23.9, adult -Refill and Continue Percocet 5-325mg 4x/day, as needed for pain-Consider Belbuca in the future for pain relief - Schedule PT for evaluation-Follow up in 4 weeks, telehealth is ok Related to Rheumatoid arthritis, unspecified Same plan of care as statement for above diagnosis, no changes Related to Pain in hand Lifestyle education regarding di et Related to Body mass index [BMI] 23.0-23.9, adult -Prescribe Percocet 5-325mg 4x/day,-Consider Buprenorphine products such as Belbuca, literature provided today -Schedule physical therapy evaluation-Schedule behavioral health evaluation -UDT and OA completed today-Follow up in 4-6 weeks with [facility] via telehealth Related to Rheumatoid arthritis, unspecified Same plan of care as statement for above diagnosis, no changes Related to Pain in hand Same plan of care as statement for above diagnosis, no changes Related to Pain in foot Assessments Type Assessment Date assessment Rheumatoid arthritis, unspecifie d Mental Status Date Cognitive Assessment Orientation - [place] ed to time, place, person, situation. Patient Care Teams Name Effective Dates (start - stop) Status Members No Information
--- NOTE | 2023-04-19 10:53 | W.ANESCHARGE ---
Anesthesia Charges Start Date/Time Anesthesia Start Date: 04/19/23 Anesthesia Start Time: 10:34 Stop Date/Time Anesthesia Stop Date: 04/19/23 Anesthesia Stop Time: 11:25
--- NOTE | 2023-04-19 11:25 | W.ANESCHARGE ---
Anesthesia Charges Start Date/Time Anesthesia Start Date: 04/19/23 Anesthesia Start Time: 10:34 Stop Date/Time Anesthesia Stop Date: 04/19/23 Anesthesia Stop Time: 11:25
== END 2023-04-19 10:05 | disposition home or self-care (01) ==
LOC: OP CLINIC 10:05
PROVIDERS: PCP Family Medicine; Visit Provider Surgery
DX: Z12.11 Encounter for screening for malignant neoplasm of colon (principal); K63.5 Polyp of colon
CPT/HCPCS: 00811; 45385; 88305; J2704

== ENCOUNTER 2023-05-17 14:01 | Outpatient (CLI) | payer BC, SELFPAY ==
--- NOTE | 2023-05-17 14:00 | CRLHL7_ITS ---
For Patients: As a result of the Century Cures Act, medical imaging exams and procedure reports are released immediately into your electronic medical record. You may view this report before your referring provider. If you have questions, please contact your health care provider. INDICATION: Other chest pain COMPARISON: none TECHNIQUE: Real time nevarez scale imaging and color Doppler analysis was performed of the right upper quadrant. FINDINGS: The patient`s liver is of normal size and has uniform echogenicity. There is a normal appearance of the hepatic IVC and proximal abdominal aorta. There is no evidence of ascites. The gallbladder is of normal size and there is no evidence of intraluminal stones or sludge. The gallbladder wall measures 1.4 mm in thickness. The common bile duct is of normal size and measures 4.7 mm in diameter at the level of the amna hepatis. The visualized pancreas appears normal. There is no evidence of a stone or hydronephrosis within the right kidney. The right kidney measures 9.2 cm in length. IMPRESSION: Normal right upper quadrant ultrasound. Dictated by Justin Caldwell MD @ 05/18/2023 10:45:34 AM (Electronically Signed)
[2023-05-17 16:15] VITALS: BP 128/82; PULSE 71; RESP 16
[2023-05-17] MEDS: PERFLUTREN LIPID MICROSPHERES 2 ML VIAL IV (16:21)
--- NOTE | 2023-05-17 16:21 | P.STN_ITS ---
Stress Test Note Date Date Seen: 05/17/23 Date of test: 05/17/23 Providers Primary care provider: Katiana Riley Stress test physician: Philly Light Stress Test Note Stress test ordered: Stress Echo Indication for test: Chest pain [facility] Results discussion: Resting EKG: Sinus rhythm, 55 beats per minute. Flipped T-waves V1 without any ST segment changes. Resting blood pressure: 152/100 Stress test: Patient was exercised on the treadmill following standard Garret protocol. She was able to exercise to 7 minutes 37 seconds, stopped due to reaching exercise capacity. This was equivalent to 9.1 Mets. She did achieve a maximum heart rate of 179 beats per minute which was 131 % of a a calculated target of 136. Her rate pressure product was calculated to be 23,976. Patient had no evidence of any ischemic change. In recovery did have some sinus arrhythmia and potential premature atrial contractions. This resolved by time of discharge. Patient did not have any symptoms during the stress test. Impression: Subjectively negative, objectively negative EKG portion of this stress test. Follow up suggested: Patient has a follow-up with her primary care provider that is already scheduled. She is aware that this provider will get the echo report to couple this for a full formal diagnostic once it is available. She is discharged from here in stable condition.
== END 2023-05-17 14:02 | disposition home or self-care (01) ==
LOC: US 14:36 → STRESS 15:09
PROVIDERS: PCP Family Medicine; Visit Provider Family Medicine
DX: R07.89 Other chest pain (principal)
CPT/HCPCS: 76705; 93016; 93325; 93351; Q9957

== ENCOUNTER 2024-06-14 15:04 | Outpatient (CLI) | payer BC, SELFPAY ==
[2024-06-14 21:59] LABS: Basophils Absolute Auto 0.07 K/uL (0.00-0.30); Basophils Percent Auto 1.4 % (0.0-3.0); Eosinophils Percent Auto 7.2 % (0.0-7.0); Hematocrit 36.9 % (33.0-51.0); Hemoglobin* 11.2 gm/dL (12.0-16.0); Lymphocytes Absolute Auto 1.92 K/uL (0.90-2.90); Lymphocytes Percent Auto 39.3 % (20-44); Mean Corpuscular HGB Conc 30 gm/dL (32-36); Mean Corpuscular Hemoglobin 29 pg (26-34); Mean Corpuscular Volume 94 fL (80-100); Monocytes Percent Auto 12.5 % (0.0-11.0); Neutrophils Percent Auto 39.6 % (42.0-72.0); Platelet Count* 354 K/uL (140-440); RDW Coefficient of Variation % 13.9 % (11.5-15.5); Red Blood Count 3.92 m/uL (4.00-5.20); White Blood Count* 4.88 K/uL (4.50-11.00)
[2024-06-14 22:04] LABS: Slide Review Reflex No
[2024-06-14 22:30] LABS: Erythrocyte SedimentationRate* 6 mm/hr (2-20)
[2024-06-14 23:25] LABS: Creatinine* 0.6 mg/dL (0.5-1.5); Estimated Glomerular Filt Rate 102 ml/min
[2024-06-14 23:26] LABS: Alanine Aminotransferase* 25 U/L (4-35); Aspartate Amino Transferase* 40 U/L (12-35)
[2024-06-14 23:40] LABS: C Reactive Protein* < 0.5 mg/dL (0.5-1.0)
== END 2024-06-14 15:05 | disposition home or self-care (01) ==
LOC: NPINS 15:09
PROVIDERS: Visit Provider Internal Medicine Rheumatology
DX: Z79.899 Other long term (current) drug therapy (principal)
CPT/HCPCS: 82040; 82565; 84450; 84460; 85025; 85651; 86140